=== PATIENT | female | born 1930 | race Caucasian/White ===

== ENCOUNTER → 2016-04-11 | Outpatient (CLI) | payer MEDICARE, OTHER ==
[~2016-04-11] MED LIST: /ACETCOD2T PO; ACET25TA5 PO; APAP500T PO; ASPI81TA85 PO; CALC600T9 PO; FENO48TA2 PO; FENO50CA PO; FISH100035 PO; GABA100C PO; GARL705C PO; GLUC750C4 PO; GLUCTAB6 PO; HYDR-3713 PO; LEVO25TA5 PO; LEVO88TA2 PO; LISI20TA PO; LISIPOW PO; LORA10TA2 PO; MELOPOW PO; METF500T PO; MULTIVITAMIN IV; MULTTAB4 PO; NATU400T PO; NEUR300C PO; ROBA500T PO; SIMV20TA2 PO; TYLE650T25 PO; ULTR37.52 PO; VITA100066 PO; VITACAP8 PO; ZINC50TA22 PO
--- NOTE | 2016-04-12 01:24 | ECWPNPC ---
PATIENT NAME: ARIEL WREN : 1930 GENDER: FEMALE VISIT DATE: 04/11/2016 DISCHARGE DATE: 04/11/16 1118 VISIT LOCKED DATE TIME: PHYSICIAN: YESSICA WANG RESOURCE: YESSICA WANG REASON FOR APPOINTMENT 1. BACK HISTORY OF PRESENT ILLNESS HISTORY OF PRESENT ILLNESS: HERE FOR 3 MOS F/U.HAD LESI ON 12-20-15.THIS WAS HELPFUL WITH MARKED REDUCTION IN PAIN FOR SEVERAL WEEK .RATING PAIN VAS 9/10.USING ULTRACET 37.5/325 BID,[id number] BID AND ROBAXIN 500MG BID.REPORTS FALLING X2 PAST 10 DAYS.HAVING INCREASE IN LBP AND HIP PAIN.HOSPITALIZED IN JANUARY FOR SEPSIS.FINDS CURRENT REGIMEN SOMEWHAT HELPFUL AT REDUCING PAIN AND KEEPING HER COMFORTABLE LATLEY.SHE DOES ALOT OF HEAVY WORK AROUND HOME HER IS DISABLED.DISCUSSED MEDICINE AND TREATMENT OPTIONS. PAIN THE PATIENT DESCRIBES THE PAIN... THE PATIENT DESCRIBES THE PAIN... THE PATIENT DESCRIBES THE PAIN... THE PATIENT DESCRIBES THE PAIN... FALL RISK SCREENING: SCREENING :NO FALLS IN THE PAST YEAR CURRENT MEDICATIONS TAKING ASPIR-81 81 MG TABLET DELAYED RELEASE 1 TABLET ORALLY ONCE A DAY, NOTES: 12/19/15 0900 TAKING FENOFIBRATE 64 TABLET 1TAB ORALLY DAILY, NOTES: 12/19/152329 TAKING FISH OIL 1000 MG CAPSULE 2 CAPSULE ORALLY BID, NOTES: 12/19/152329 TAKING LEVOTHYROXINE SODIUM 75 TABLET 1 TABLET ON AN EMPTY STOMACH IN THE MORNING ORALLY ONCE A DAY, NOTES: 12/20/15 0800 TAKING LISINOPRIL/HCTZ 20/12.5MG TABLET DIRECTED ORAL DAILY, NOTES: 12/19/152329 TAKING MULTIVITAMINS TABLET 1TAB ORALLY DAILY, NOTES: 12/19/15 AM TAKING ZINC 50 MG TABLET 1 TABLET ORALLY ONCE A DAY, NOTES: 12/19/15 1200 TAKING METFORMIN HCL 500 MG TABLET 1 TABLET WITH MEALS ORALLY TWICE A DAY, NOTES: 12/19/152329 TAKING VITAMIN B COMPLEX-C CAPSULE 1 TAB(S) ORALLY DAILY, NOTES: 12/19/15 1200 TAKING ULTRACET 37.5-325 MG TABLET 1 ORALLY BID PRN MDD2, NOTES: 12/20/15 0800 TAKING TRAMADOL-ACETAMINOPHEN 325-37.5 MG TABLET 1 TAB(S) ORALLY BID PRN MDD2 TAKING CYMBALTA 30 MG CAPSULE DELAYED RELEASE PARTICLES 1 CAPSULE ORALLY ONCE A DAY, NOTES: 12/19/15 1800 TAKING MOBIC 7.5 MG TABLET 1 TABLET ORALLY ONCE A DAY, NOTES: 12/19/15 1200 TAKING GABAPENTIN 600 600 MG TABLET 1 ORAL BID, NOTES: 12/20/15 0800 TAKING METHOCARBAMOL 500 MG TABLET 1 TAB(S) ORALLY BID, NOTES: 12/2015 0800 TAKING ULTRACET 37.5-325 MG TABLET 1 ORALLY BID PRN MDD2 TAKING IRON 325 (65 FE) MG TABLET 1 TABLET ORALLY ONCE A DAY NOT-TAKING LORATADINE 10 MG TABLET 1 TABLET ORALLY ONCE A DAY, NOTES: 12/19/15 AM NOT-TAKING VITAMIN E 1000 UNIT CAPSULE 1 CAPSULE ORALLY ONCE A DAY NOT-TAKING GARLIC 1000 MG CAPSULE 1CAP ORALLY DAILY NOT-TAKING GLUCOSAMINE CHONDROITIN COMPLX 760-600MG CAPSULE 2CAPS ORALLY DAILY NOT-TAKING TYLENOL 325 MG TABLET 2TABS ORALLY DAILY MEDICATION LIST REVIEWED AND RECONCILED WITH THE PATIENT PAST MEDICAL HISTORY HTN HYPERLIPIDEMIA HYPOTHYROIDISM DM ARTHRITIS AORTIC STENOSIS ALLERGIES N.K.D.A. SOCIAL HISTORY GENERAL: TOBACCO USE ARE YOU A:NONSMOKER LEARNING BARRIERS / SPECIAL NEEDS ORIENTED TO PLAN OF CARE: PATIENT, PAIN MANAGEMENT PATIENT, ORIENTED TO PLAN OF CARE: PATIENT, PAIN MANAGEMENT PATIENT. NEW PATIENT PAIN DIARY TODAY'S VISITNOTES FROM 0-10, WHAT LEVEL IS YOUR PAIN TODAY?0 PAIN CLINIC PFS, CLERGY, PUBLIC HEALTH REFERRALS PFS REFERRAL NEEDED?NO CLERGY REFERRAL NEEDED?NO PUBLIC HEALTH REFERRAL NEEDED?NO WAS THE PROVIDER NOTIFIED OF ANY PERTINENT INFO?NO PFS REFERRAL NEEDED?NO CLERGY REFERRAL NEEDED?NO PUBLIC HEALTH REFERRAL NEEDED?NO WAS THE PROVIDER NOTIFIED OF ANY PERTINENT INFO?NO REVIEW OF SYSTEMS CONSTITUTIONAL: ANY CHANGE IN YOUR MEDICAL CONDITION? YES PT TREATED INPATIENT X 5 DAYS AT [facility] FOR SEPSIS IN JANUARY.&NBSP;. CHILLS &NBSP;&NBSP; NO&NBSP;. FEVER &NBSP;&NBSP; NO&NBSP;. INFECTION: DO YOU HAVE NEW INFECTIONS? NO . DO YOU HAVE HISTORY OF MRSA? NO . MUSCULOSKELETAL: ANY NEW PATTERNS OF PAIN OR NUMBNESS? NO . GASTROENTEROLOGY: ANY NEW CHANGE IN BOWEL CONTROL? NO . GENITOURINARY: ANY NEW CHANGE IN BLADDER CONTROL? YES PT REPORTS INCREASED URGENCY SINCE BEING HOSPITALIZED IN JANUARY. PT DENIES BURNING OR PAIN. . IS THERE A CHANCE YOU COULD BE ? NO . HEMATOLOGY/LYMPH: DO YOU TAKE ANY BLOOD THINNERS? (FOR EXAMPLE- COUMADIN, PLAVIX, AGGRENOX, PLATEL, PRADAXA, OR XARELTO) NO . WHEN WAS YOUR LAST DOSE? DATE: TIME: . NEUROLOGY: HAVE YOU FALLEN IN THE PAST 6 MONTHS? YES PT REPORTS TWO FALLS IN PAST WEEK, BENDING OVER TO PICK SOMETHING UP, LOST BALANCE AND FELL. BOTH TIMES SHE STRUCK HER HEAD, NO ED VISIT. PT REPORTS INCREASED PAIN IN HER BUTTOCKS, LOW BACK AND DOWN BOTH LEGS SINCE FALL. USING WALKER. . ANY NEW EXTREMITY NUMBNESS OR WEAKNESS? NO . CARDIOLOGY: DO YOU HAVE A PACEMAKER OR DEFIBRILLATOR? NO . RESPIRATORY: HAVE YOU BEEN SICK IN THE PAST WEEK? NO . FEVER NO . FLU LIKE SYMPTOMS? NO . COUGH NO . INTEGUMENTARY: DO YOU HAVE ANY RASHES OR OPEN SORES? NO . ALLERGIC/IMMUNO: ARE YOU ALLERGIC TO SHELLFISH OR IV DYE? NO . ANY NEW ALLERGIES? NO . PSYCHIATRIC: DO YOU HAVE THOUGHTS OF HURTING YOURSELF OR SOMEONE ELSE? NO . ARE YOU ABUSED, NEGLECTED, OR IN AN UNSAFE ENVIRONMENT? NO . ENDOCRINOLOGY: ARE YOU DIABETIC? YES . OTHER: DO YOU NEED ANY PRESCRIPTIONS? NO . IF YES, PLEASE LIST: ____ . ANY NEW PROBLEMS WITH YOUR MEDICATIONS? NO . WHEN DID YOU LAST EAT? ____ . WHEN DID YOU LAST DRINK? ____ . WHAT DID YOU LAST DRINK? ____ . NAME OF PERSON DRIVING YOU HOME? ____ . DO YOU HAVE ANY OTHER QUESTIONS OR CONCERNS NO . REVIEWED BY: PROVIDER: YESSICA CALL . VITAL SIGNS WT 164.4 LBS, HT 5'6", BMI 26.53 INDEX, BP 152/80 MM HG, HR 74 /MIN, RR 16 /MIN, TEMP 97.6 F, OXYGEN SAT % 93%, SAFE IN ENV? (Y/N) YES, NA INITIALS SC 10:33, REVIEWED BY: LUIS. EXAMINATION GENERAL EXAMINATION: LUNGS:LUNG SOUNDS ARE CLEAR. HEART:HEART RATE REGULAR. MUSCULOSKELETAL:*, MUSCLE STRENGTH TESTING 3/5 BILATERAL, PALPATION: POSITIVE FOR PAIN OVER L/S SPINE. POSITIVE FOR PAIN OVER L/S PARSPINALS. ASSESSMENTS CHRONIC BILATERAL LOW BACK PAIN WITH BILATERAL SCIATICA - M54.42 (PRIMARY) TREATMENT CHRONIC BILATERAL LOW BACK PAIN WITH BILATERAL SCIATICA REFILL TRAMADOL-ACETAMINOPHEN TABLET, 325-37.5 MG, 1 TAB(S), ORALLY, Q8H PRN MDD3, 30 DAY(S), 90, REFILLS 2 CONTINUE CYMBALTA CAPSULE DELAYED RELEASE PARTICLES, 30 MG, 1 CAPSULE, ORALLY, ONCE A DAY, NOTES: 12/19/15 1800 CONTINUE MOBIC TABLET, 7.5 MG, 1 TABLET, ORALLY, ONCE A DAY, NOTES: 12/19/15 1200 INCREASE METHOCARBAMOL TABLET, 500 MG, 1 TAB(S), ORALLY, Q8H PRN MDD3, 30 DAY(S), 90, REFILLS 2, NOTES: 12/2015 0800 STOP GABAPENTIN 600 TABLET, 600 MG, 1, ORAL, BID, 30 DAY(S), 60, NOTES: 12/20/15 0800 START GABAPENTIN CAPSULE, 300 MG, 1 CAPSULE, ORALLY, BID, 30 DAY(S), 60 CAPSULE, REFILLS 5 START ULTRACET TABLET, 37.5-325 MG, 1, ORALLY, Q8H PRN MDD3, 30 DAY(S), 90, REFILLS 1 [facility] MRI SPINE, L.S. WITHOUT [id number] PROCEDURE CODES FA211 ESTABILISHED PATIENT [facility] FACILITY CHARGE G8730 PAIN ASSESS POS TOOL F/U PLAN DOC G8427 DOC MEDS VERIFIED W/PT OR RE FOLLOW UP 4 WEEKS ELECTRONICALLY SIGNED BY JAKUB NASCIMENTO ON 04/11/2016 AT 01:19 PM EST DISCLAIMER : THIS IS A VISIT SUMMARY EXTRACTED FROM THE [email or web address] CHART. IT IS NOT A COPY OF THE [email or web address] PROGRESS NOTE. MTDD
== END ==
LOC: M PAIN 10:20
PROVIDERS: ATTEND Nurse Practitioner Family
DX: Z09 Encounter for follow-up examination after completed treatment for conditions other than malignant neoplasm (principal); G89.29 Other chronic pain; M54.42 Lumbago with sciatica, left side; I10 Essential (primary) hypertension; E78.5 Hyperlipidemia, unspecified; E03.9 Hypothyroidism, unspecified; E11.9 Type 2 diabetes mellitus without complications; M19.90 Unspecified osteoarthritis, unspecified site; I35.0 Nonrheumatic aortic (valve) stenosis; Z79.1 Long term (current) use of non-steroidal anti-inflammatories (NSAID); Z79.82 Long term (current) use of aspirin; Z79.84 Long term (current) use of oral hypoglycemic drugs; Z79.891 Long term (current) use of opiate analgesic; Z79.899 Other long term (current) drug therapy

== ENCOUNTER → 2016-04-15 | Outpatient (CLI) | payer MEDICARE, OTHER ==
--- NOTE | 2016-04-15 14:18 | REP ---
Clinical: Bilateral hip pain. Technique: AP and frog lateral views of the right and left hip. Findings: Symmetric age related osteopenia is appreciated along with mild age-related arthritic degenerative changes. Findings include increased sclerosis to the acetabular roof, joint space narrowing, subtle spurring along the acetabular margin as well as enthesopathy and subtle cortical irregularity involving the inferior pubic rami and bilateral greater trochanters. Impression: Symmetric age-related degenerative changes. Signed by Juan Childress MD 04/15/2016 02:10 P
--- NOTE | 2016-04-15 18:08 | REP ---
MRI LUMBAR SPINE WITHOUT CONTRAST: HISTORY: Radiculopathy. Decreased signal intensity on T2 weighted images is present in the lumbar intervertebral discs. The discs are decreased in height. These findings are consistent with disc degeneration. A diffuse bulge is present at the L1-2 level. The previously noted left paracentral disc extrusion is not seen. There is hypertrophy of the ligamenta flava and posterior articulating facets. These findings produce minimal central canal stenosis. The L1 nerves exit the neural foramina without compression. A diffuse disc bulge is present at the L2-3 level. There is hypertrophy of the ligamenta flava and posterior articulating facets. These findings produce mild central canal stenosis. The L2 nerve exit the neural foramina without compression. A diffuse disc bulge and mild size left paracentral disc extrusion are present at the L3-4 level. There is superior migration of disc material. There is hypertrophy of the ligamenta flava and posterior articulating facets. There are 4 mm of grade 1 spondylolisthesis of L3 on 4. These findings produce severe central canal stenosis. There is compression of the L3 nerves in the neural foramina. A diffuse disc bulge is present at the L4-5 level. There is hypertrophy of the ligamenta flava and posterior articulating facets. These findings produce mild central canal stenosis. There is compression of the L4 nerves in the neural foramina. A diffuse disc bulge and small central disc protrusion are present at the L5-S1 level. The disc protrusion abuts the thecal sac. There is hypertrophy of the posterior articulating facets. There is compression of the L5 nerves in the neural foramina. Fluid is present in the right L5-S1 facet joint. The conus medullaris is normal in appearance terminating at the level of the L1-2 intervertebral disc . Increased signal intensity on T2 weighted images is present in the endplates of the L1-S1 vertebral bodies. This represents degenerative change. There are old compression fractures of the L3 through L5 vertebral bodies with minimal height loss. IMPRESSION: 1. Minimal central stenosis at the L1-2 level secondary to disc bulge and ligamentous and facet hypertrophy. The previously noted disc protrusion is not seen. 2. Mild central canal stenosis at the L2-3 level secondary to disc bulge, ligamentous and facet hypertrophy. 3. Severe central canal stenosis at the L3-4 level secondary to disc bulge disc extrusion, ligamentous and facet hypertrophy and grade 1 spondylolisthesis. There is compression of the L3-nerves in the neural foramina. 4. Mild central canal stenosis at the L4-5 level secondary to disc bulge, ligamentous and facet hypertrophy. There is compression of the L4 nerves in the neural foramina. 5. Diffuse disc bulge and small disc protrusion at the L5-S1 level . The disc protrusion abuts the thecal sac. There is compression of the L5 nerves in the neural foramina. The disc protrusion is a new finding . There is no other significant change. Signed by Akira Whitfield MD 04/16/2016 08:04 A
== END ==
LOC: M RAD 13:23
PROVIDERS: ATTEND Nurse Practitioner Family
DX: M54.16 Radiculopathy, lumbar region (principal)

== ENCOUNTER → 2016-04-23 | Outpatient (CLI) | payer MEDICARE, OTHER ==
--- NOTE | 2016-04-28 23:43 | ECWPNPC ---
PATIENT NAME: ARIEL WREN : 1930 GENDER: FEMALE VISIT DATE: 04/23/2016 DISCHARGE DATE: 04/23/16 1204 VISIT LOCKED DATE TIME: PHYSICIAN: YESSICA WANG RESOURCE: YESSICA WANG REASON FOR APPOINTMENT 1. DISCUSS MRI HISTORY OF PRESENT ILLNESS HISTORY OF PRESENT ILLNESS: HERE FOR F/U AND REVIEW OF MRI L/S SPINE 04-15-16.THIS IS REVIEWED WITH PATIENT.SHOWING MULTI LEVEL SPINAL STENOSIS.HAS SEVERE CENTRAL STENOSIS AT L3/4 SECONDARY TO DISC BULGE,DISC EXTRUSION,LIGAMENTOUS AND FACET HYPERTROPHY.GRADE ONE SPONDYLOLISTHESIS AND COMPRESSION OF L3 NERVES IN NEURAL FORAMEN.AT L4/5 THERE IS COMPRESSION OF L4 NERVES IN NEURAL FORAMEN.THERE IS A NEW FINDING AT L5/S1 OF DISC PROTRUSION WITH COMPRESSION OF L5 NERVES IN NEURAL FORAMEN.PAIN IS LOCATED ACROSS LOW BACK WITH RADIATION DOWN BOTH POSTERIOR LEGS.DESCRIBES PAIN CONSTANT ACHING AND THROBBING.DENIES BOWEL OR BLADDER INCONTINENCE. FALL RISK SCREENING: SCREENING :NO FALLS IN THE PAST YEAR CURRENT MEDICATIONS TAKING ASPIR-81 81 MG TABLET DELAYED RELEASE 1 TABLET ORALLY ONCE A DAY, NOTES: 12/19/15 0900 TAKING FENOFIBRATE 64 TABLET 1TAB ORALLY DAILY, NOTES: 12/19/15 2330 TAKING FISH OIL 1000 MG CAPSULE 2 CAPSULE ORALLY BID TAKING LEVOTHYROXINE SODIUM 75 TABLET 1 TABLET ON AN EMPTY STOMACH IN THE MORNING ORALLY ONCE A DAY TAKING LISINOPRIL/HCTZ 20/12.5MG TABLET 1 TAB ORAL DAILY TAKING MULTIVITAMINS TABLET 1TAB ORALLY DAILY TAKING ZINC 50 MG TABLET 1 TABLET ORALLY ONCE A DAY TAKING METFORMIN HCL 500 MG TABLET 1 TABLET WITH MEALS ORALLY TWICE A DAY TAKING VITAMIN B COMPLEX-C CAPSULE 1 TAB(S) ORALLY DAILY TAKING IRON 325 (65 FE) MG TABLET 1 TABLET ORALLY ONCE A DAY TAKING TRAMADOL-ACETAMINOPHEN 325-37.5 MG TABLET 1 TAB(S) ORALLY Q8H PRN MDD3 TAKING CYMBALTA 30 MG CAPSULE DELAYED RELEASE PARTICLES 1 CAPSULE ORALLY ONCE A DAY, NOTES: 12/19/15 1800 TAKING MOBIC 7.5 MG TABLET 1 TABLET ORALLY ONCE A DAY, NOTES: 12/19/15 1200 TAKING METHOCARBAMOL 500 MG TABLET 1 TAB(S) ORALLY Q8H PRN MDD3, NOTES: 12/2015 0800 TAKING GABAPENTIN 300 MG CAPSULE 1 CAPSULE ORALLY BID TAKING ULTRACET 37.5-325 MG TABLET 1 ORALLY Q8H PRN MDD3 NOT-TAKING LORATADINE 10 MG TABLET 1 TABLET ORALLY ONCE A DAY, NOTES: 12/19/15 AM NOT-TAKING VITAMIN E 1000 UNIT CAPSULE 1 CAPSULE ORALLY ONCE A DAY NOT-TAKING GARLIC 1000 MG CAPSULE 1CAP ORALLY DAILY NOT-TAKING GLUCOSAMINE CHONDROITIN COMPLX 760-600MG CAPSULE 2CAPS ORALLY DAILY NOT-TAKING TYLENOL 325 MG TABLET 2TABS ORALLY DAILY DISCONTINUED ULTRACET 37.5-325 MG TABLET 1 ORALLY BID PRN MDD2 DISCONTINUED ULTRACET 37.5-325 MG TABLET 1 ORALLY BID PRN MDD2 MEDICATION LIST REVIEWED AND RECONCILED WITH THE PATIENT PAST MEDICAL HISTORY HTN HYPERLIPIDEMIA HYPOTHYROIDISM DM ARTHRITIS AORTIC STENOSIS ALLERGIES N.K.D.A. SOCIAL HISTORY GENERAL: TOBACCO USE ARE YOU A:NONSMOKER LEARNING BARRIERS / SPECIAL NEEDS ORIENTED TO PLAN OF CARE: PATIENT, PAIN MANAGEMENT PATIENT, ORIENTED TO PLAN OF CARE: PATIENT, PAIN MANAGEMENT PATIENT. NEW PATIENT PAIN DIARY TODAY'S VISITNOTES FROM 0-10, WHAT LEVEL IS YOUR PAIN TODAY?0 PAIN CLINIC PFS, CLERGY, PUBLIC HEALTH REFERRALS PFS REFERRAL NEEDED?NO CLERGY REFERRAL NEEDED?NO PUBLIC HEALTH REFERRAL NEEDED?NO WAS THE PROVIDER NOTIFIED OF ANY PERTINENT INFO?NO PFS REFERRAL NEEDED?NO CLERGY REFERRAL NEEDED?NO PUBLIC HEALTH REFERRAL NEEDED?NO WAS THE PROVIDER NOTIFIED OF ANY PERTINENT INFO?NO REVIEW OF SYSTEMS CONSTITUTIONAL: ANY CHANGE IN YOUR MEDICAL CONDITION? NO . CHILLS NO . FEVER NO . INFECTION: DO YOU HAVE NEW INFECTIONS? NO . DO YOU HAVE HISTORY OF MRSA? NO . MUSCULOSKELETAL: ANY NEW PATTERNS OF PAIN OR NUMBNESS? NO . GASTROENTEROLOGY: ANY NEW CHANGE IN BOWEL CONTROL? NO . GENITOURINARY: ANY NEW CHANGE IN BLADDER CONTROL? NO . IS THERE A CHANCE YOU COULD BE ? NO . HEMATOLOGY/LYMPH: DO YOU TAKE ANY BLOOD THINNERS? (FOR EXAMPLE- COUMADIN, PLAVIX, AGGRENOX, PLATEL, PRADAXA, OR XARELTO) NO . WHEN WAS YOUR LAST DOSE? DATE: TIME: . NEUROLOGY: HAVE YOU FALLEN IN THE PAST 6 MONTHS? YES, 2 X'S WITHIN THIS MONTH&NBSP;. ANY NEW EXTREMITY NUMBNESS OR WEAKNESS? &NBSP;&NBSP; YES, RIGHT LEG JUST GIVES OUT ON HER&NBSP;. CARDIOLOGY: DO YOU HAVE A PACEMAKER OR DEFIBRILLATOR? NO . RESPIRATORY: HAVE YOU BEEN SICK IN THE PAST WEEK? NO . FEVER NO . FLU LIKE SYMPTOMS? NO . COUGH NO . INTEGUMENTARY: DO YOU HAVE ANY RASHES OR OPEN SORES? NO . ALLERGIC/IMMUNO: ARE YOU ALLERGIC TO SHELLFISH OR IV DYE? NO . ANY NEW ALLERGIES? NO . PSYCHIATRIC: DO YOU HAVE THOUGHTS OF HURTING YOURSELF OR SOMEONE ELSE? NO . ARE YOU ABUSED, NEGLECTED, OR IN AN UNSAFE ENVIRONMENT? NO . ENDOCRINOLOGY: ARE YOU DIABETIC? YES . OTHER: DO YOU NEED ANY PRESCRIPTIONS? NO . IF YES, PLEASE LIST: ____ . ANY NEW PROBLEMS WITH YOUR MEDICATIONS? NO . WHEN DID YOU LAST EAT? ____ . WHEN DID YOU LAST DRINK? ____ . WHAT DID YOU LAST DRINK? ____ . NAME OF PERSON DRIVING YOU HOME? ____ . DO YOU HAVE ANY OTHER QUESTIONS OR CONCERNS YES REVIEW MRI LUMBAR SPINE AND HIP XRAY . REVIEWED BY: PROVIDER: YESSICA CALL . VITAL SIGNS WT 162.6 LBS, HT 5'6", BMI 26.24 INDEX, BP 137/84 MM HG, HR 75 /MIN, RR 16 /MIN, TEMP 97.8 F, OXYGEN SAT % 94%, NA INITIALS SC 11:17, REVIEWED BY: AD. EXAMINATION GENERAL EXAMINATION: LUNGS:LUNG SOUNDS ARE CLEAR. HEART:HEART RATE REGULAR. MUSCULOSKELETAL:*, MUSCLE STRENGTH TESTING 3/5 BILATERAL, PALPATION: POSITIVE FOR PAIN OVER L/S SPINE. POSITIVE FOR PAIN OVER L/S PARSPINALS. MRI L/S [id number]-REVIEWED.BILAT. HIP AP/QPE-[id number]-REVIEWED. 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 FDA CONCERNS AND WARNING WERE REVIEWED INCLUDING THE RISK OF BLEEDING, RISK OF INFECTION, RISK OF INCREASED PAIN OR NEURALGIA, AND RISK OF PARALYSIS. PATIENT'S QUESTIONS WERE ANSWERED AND HE/SHE WISHES TO MOVE FORWARD WITH EPIDURAL INJECTION. [facility] REASON:SEVERE CENTRAL STENOSIS L3/4 LUMBAR RADICULOPATHY DISC EXTRUSION W SUPERIOR MIGRATION L3/4 PROCEDURE CODES FA211 ESTABILISHED PATIENT [facility] CHARGE G8730 PAIN ASSESS POS TOOL F/U PLAN DOC G8427 DOC MEDS VERIFIED W/PT OR RE DISPOSITION & COMMUNICATION FOLLOW UP 2WK POST (REASON: L3/4-L4/5 LESI) ELECTRONICALLY SIGNED BY JAKUB NASCIMENTO ON 04/28/2016 AT 05:36 PM EST DISCLAIMER : THIS IS A VISIT SUMMARY EXTRACTED FROM THE [employer] CHART. IT IS NOT A COPY OF THE [employer] PROGRESS NOTE. PRITI
== END ==
LOC: M PAIN 10:40
PROVIDERS: ATTEND Nurse Practitioner Family
DX: Z09 Encounter for follow-up examination after completed treatment for conditions other than malignant neoplasm (principal); G89.29 Other chronic pain; M54.42 Lumbago with sciatica, left side; M51.26 Other intervertebral disc displacement, lumbar region; M48.06 Spinal stenosis, lumbar region; I10 Essential (primary) hypertension; E78.5 Hyperlipidemia, unspecified; E03.9 Hypothyroidism, unspecified; E11.9 Type 2 diabetes mellitus without complications; M19.90 Unspecified osteoarthritis, unspecified site; Z79.82 Long term (current) use of aspirin; Z79.84 Long term (current) use of oral hypoglycemic drugs; Z79.891 Long term (current) use of opiate analgesic; Z79.1 Long term (current) use of non-steroidal anti-inflammatories (NSAID); Z79.899 Other long term (current) drug therapy; Z86.79 Personal history of other diseases of the circulatory system

== ENCOUNTER → 2016-05-20 | Outpatient (CLI) | payer MEDICARE, OTHER ==
[~2016-05-20] MED LIST changes: +ISOVUE-M 300 61% 15ML VIAL (Q9967) As Ordered ONE; +LIDOCAINE 1% SDV INJ 30 ML VIAL As Ordered ONE; +methylPREDNISolone SUSP 40 MG/ML (DEPO-medrol) VIAL (J1030) As Ordered ONE
--- NOTE | 2016-05-20 13:05 | REP ---
PARTIAL LUMBAR SPINE SERIES: FOUR VIEWS. HISTORY: Lumbar epidural steroid injection for pain. 8 seconds of fluoroscopy time is reported. FINDINGS: A sequence of four fluoroscopically-obtained intraprocedural spot radiographs using last image hold technique document needle position and contrast injection for lumbar epidural injection procedure. Signed by Tyrel Luis MD 05/20/2016 03:01 P
--- NOTE | 2016-05-28 02:35 | ECWPNPC ---
PATIENT NAME: ARIEL WREN : 1930 GENDER: FEMALE VISIT DATE: 05/20/2016 DISCHARGE DATE: 05/20/16 1209 VISIT LOCKED DATE TIME: PHYSICIAN: HEIDI HIGGINBOTHAM RESOURCE: HEIDI HIGGINBOTHAM REASON FOR APPOINTMENT 1. LESI HISTORY OF PRESENT ILLNESS HISTORY OF PRESENT ILLNESS: PAIN THE PATIENT DESCRIBES THE PAIN... FALL RISK SCREENING: SCREENING :NO FALLS IN THE PAST YEAR CURRENT MEDICATIONS TAKING ASPIR-81 81 MG TABLET DELAYED RELEASE 1 TABLET ORALLY ONCE A DAY, NOTES: 05/19/16899 TAKING FENOFIBRATE 64 TABLET 1TAB ORALLY DAILY, NOTES: 05/19/162329 TAKING FISH OIL 1000 MG CAPSULE 2 CAPSULE ORALLY BID, NOTES: 05/19/162299 TAKING LEVOTHYROXINE SODIUM 75 TABLET 1 TABLET ON AN EMPTY STOMACH IN THE MORNING ORALLY ONCE A DAY, NOTES: 05/19/16 06 TAKING LISINOPRIL/HCTZ 20/12.5MG TABLET 1 TAB ORAL DAILY, NOTES: 05/19/16 1400 TAKING MULTIVITAMINS TABLET 1TAB ORALLY DAILY, NOTES: 05/19/16899 TAKING ZINC 50 MG TABLET 1 TABLET ORALLY ONCE A DAY, NOTES: 05/19/16899 TAKING METFORMIN HCL 500 MG TABLET 1 TABLET WITH MEALS ORALLY TWICE A DAY, NOTES: 05/19/16899 TAKING VITAMIN B COMPLEX-C CAPSULE 1 TAB(S) ORALLY DAILY, NOTES: 05/19/16899 TAKING IRON 325 (65 FE) MG TABLET 1 TABLET ORALLY ONCE A DAY, NOTES: 05/19/16899 TAKING ULTRACET 37.5-325 MG TABLET 1 ORALLY Q8H PRN MDD3, NOTES: 05/19/162299 TAKING TRAMADOL-ACETAMINOPHEN 325-37.5 MG TABLET 1 TAB(S) ORALLY Q8H PRN MDD3, NOTES: 05/19/162299 TAKING CYMBALTA 30 MG CAPSULE DELAYED RELEASE PARTICLES 1 CAPSULE ORALLY ONCE A DAY, NOTES: 05/19/16899 TAKING MOBIC 7.5 MG TABLET 1 TABLET ORALLY ONCE A DAY, NOTES: 05/19/16899 TAKING METHOCARBAMOL 500 MG TABLET 1 TAB(S) ORALLY Q8H PRN MDD3, NOTES: 05/19/162299 TAKING GABAPENTIN 300 MG CAPSULE 1 CAPSULE ORALLY BID, NOTES: 3/20/17 2300 NOT-TAKING LORATADINE 10 MG TABLET 1 TABLET ORALLY ONCE A DAY, NOTES: 12/19/15 AM NOT-TAKING VITAMIN E 1000 UNIT CAPSULE 1 CAPSULE ORALLY ONCE A DAY NOT-TAKING GARLIC 1000 MG CAPSULE 1CAP ORALLY DAILY NOT-TAKING GLUCOSAMINE CHONDROITIN COMPLX 760-600MG CAPSULE 2CAPS ORALLY DAILY NOT-TAKING TYLENOL 325 MG TABLET 2TABS ORALLY DAILY MEDICATION LIST REVIEWED AND RECONCILED WITH THE PATIENT PAST MEDICAL HISTORY HTN HYPERLIPIDEMIA HYPOTHYROIDISM DM ARTHRITIS AORTIC STENOSIS ALLERGIES N.K.D.A. SOCIAL HISTORY GENERAL: TOBACCO USE ARE YOU A:NONSMOKER LEARNING BARRIERS / SPECIAL NEEDS ORIENTED TO PLAN OF CARE: PATIENT, PAIN MANAGEMENT PATIENT, ORIENTED TO PLAN OF CARE: PATIENT, PAIN MANAGEMENT PATIENT. NEW PATIENT PAIN DIARY TODAY'S VISITNOTES FROM 0-10, WHAT LEVEL IS YOUR PAIN TODAY?0 PAIN CLINIC PFS, CLERGY, PUBLIC HEALTH REFERRALS PFS REFERRAL NEEDED?NO CLERGY REFERRAL NEEDED?NO PUBLIC HEALTH REFERRAL NEEDED?NO WAS THE PROVIDER NOTIFIED OF ANY PERTINENT INFO?NO PFS REFERRAL NEEDED?NO CLERGY REFERRAL NEEDED?NO PUBLIC HEALTH REFERRAL NEEDED?NO WAS THE PROVIDER NOTIFIED OF ANY PERTINENT INFO?NO REVIEW OF SYSTEMS CONSTITUTIONAL: ANY CHANGE IN YOUR MEDICAL CONDITION? NO . CHILLS NO . FEVER NO . INFECTION: DO YOU HAVE NEW INFECTIONS? NO . DO YOU HAVE HISTORY OF MRSA? NO . MUSCULOSKELETAL: ANY NEW PATTERNS OF PAIN OR NUMBNESS? NO . GASTROENTEROLOGY: ANY NEW CHANGE IN BOWEL CONTROL? NO . GENITOURINARY: ANY NEW CHANGE IN BLADDER CONTROL? NO . IS THERE A CHANCE YOU COULD BE ? NO . HEMATOLOGY/LYMPH: DO YOU TAKE ANY BLOOD THINNERS? (FOR EXAMPLE- COUMADIN, PLAVIX, AGGRENOX, PLATEL, PRADAXA, OR XARELTO) NO . WHEN WAS YOUR LAST DOSE? DATE: TIME: . NEUROLOGY: HAVE YOU FALLEN IN THE PAST 6 MONTHS? NO . ANY NEW EXTREMITY NUMBNESS OR WEAKNESS? NO . CARDIOLOGY: DO YOU HAVE A PACEMAKER OR DEFIBRILLATOR? NO . RESPIRATORY: HAVE YOU BEEN SICK IN THE PAST WEEK? NO . FEVER NO . FLU LIKE SYMPTOMS? NO . COUGH NO . INTEGUMENTARY: DO YOU HAVE ANY RASHES OR OPEN SORES? NO . ALLERGIC/IMMUNO: ARE YOU ALLERGIC TO SHELLFISH OR IV DYE? NO . ANY NEW ALLERGIES? NO . PSYCHIATRIC: DO YOU HAVE THOUGHTS OF HURTING YOURSELF OR SOMEONE ELSE? NO . ARE YOU ABUSED, NEGLECTED, OR IN AN UNSAFE ENVIRONMENT? NO . ENDOCRINOLOGY: ARE YOU DIABETIC? NO . OTHER: DO YOU NEED ANY PRESCRIPTIONS? NO . IF YES, PLEASE LIST: ____ . ANY NEW PROBLEMS WITH YOUR MEDICATIONS? NO . WHEN DID YOU LAST EAT? ____05/19/16 2200 . WHEN DID YOU LAST DRINK? ____05/19/16 2330 . WHAT DID YOU LAST DRINK? ____WATER . NAME OF PERSON DRIVING YOU HOME? _SON KYREE WREN . DO YOU HAVE ANY OTHER QUESTIONS OR CONCERNS NO . REVIEWED BY: PROVIDER: . VITAL SIGNS WT 156.4 LBS, HT 5'6", BMI 25.24 INDEX, BP 170/74 MM HG, HR 69 /MIN, RR 18 /MIN, TEMP 97.0 F, OXYGEN SAT % 97, BLOOD GLUCOSE LEVEL 115 THIS AM PER PT, SAFE IN ENV? (Y/N) YES, NA INITIALS HS, REVIEWED BY: LUIS. ASSESSMENTS INTERVERTEBRAL DISC DISORDERS WITH RADICULOPATHY, LUMBOSACRAL REGION - M51.17 (PRIMARY) PROCEDURES PRE PROCEDURE DIAGNOSIS LUMBOSACRAL DISC DISORDER WITH RADICULOPATHY POST PROCEDURE DIAGNOSIS LUMBOSACRAL DISC DISORDER WITH RADICULOPATHY PROCEDURE LUMBAR EPIDURAL STEROID INJECTION UNDER FLUOROSCOPIC GUIDANCE SURGEON DR. HEIDI HIGGINBOTHAM ENVIRONMENTAL MONITORING TECHNICIAN NONE ANESTHESIA LOCAL PRE PROCEDURE NOTE THE PATIENT HAS A HISTORY OF CHRONIC LOW BACK PAIN. I EVALUATE THE PATIENT AND REVIEWED THE CHART. I WENT OVER THE RISKS, ALTERNATIVES, AND BENEFITS ASSOCIATED WITH THIS PROCEDURE. THE PATIENT WOULD LIKE TO PROCEED AND GIVE CONSENT TO PERFORMED THE PROCEDURE. THE PATIENT DENIES UNEXPLAINABLE WEIGHT LOSS, FEVER, CHILLS, OR NEW CHANGES IN URINARY OR BOWEL CONTROL DESCRIPTION OF PROCEDURE THE PATIENT WAS BROUGHT TO THE PROCEDURE ROOM AND PLACED IN THE PRONE POSITION. THE LUMBOSACRAL AREA WAS CLEANED WITH BETADINE SOLUTION AND DRAPED ASEPTICALLY. THE PROCEDURE WAS DONE UNDER STERILE CONDITIONS. I CHECKED LATERALITY AND THE LEVEL WHERE THE PROCEDURE WAS GOING TO BE PERFORMED WITH THE PATIENT AND THE SUPPORTING STAFF AT THE MOMENT OF THE TIME OUT IN THE PROCEDURE ROOM. UNDER FLUOROSCOPIC GUIDANCE, THE TARGET POINT WAS SELECTED AT THE INTERLAMINAR LEVEL OF L5-S1. LIDOCAINE WAS USED TO NUMB THE SKIN AND THE SUBCUTANEOUS TISSUE BELOW IT. EPIDURAL TUOHY NEEDLE, 17-GAUGE, WAS ADVANCED UNDER FLUOROSCOPIC GUIDANCE AND FOLLOWING PATIENT FEEDBACK UNTIL THE EPIDURAL SPACE WAS REACHED, 7 CM DEEP INTO THE SKIN BY THE LOSS OF RESISTANCE TECHNIQUE. ISOVUE M DYE 30%, 0.25 ML, WAS INJECTED SHOWING ADEQUATE SPREAD OF THE DYE. THEN, A SOLUTION OF 3 ML OF NORMAL SALINE WITH DEPO-MEDROL 60 MG WAS INJECTED SLOWLY FOLLOWING PATIENT FEEDBACK. THERE WAS NO EVIDENCE OF BLOOD, PARESTHESIA OR CEREBROSPINAL FLUID DURING THE PROCEDURE. THE PATIENT WAS SENT TO THE RECOVERY ROOM. THE PATIENT WAS MOVING THE EXTREMITIES AND DOING WELL. THERE WAS NO COMPLICATION DURING THE PROCEDURE. FLUOROSCOPY TIME WAS 8 SECONDS POST PROCEDURE NOTE THE PATIENT WILL BE SEEN IN A FOLLOW UP IN THE NEXT FEW WEEKS. INSTRUCTIONS WERE GIVEN, QUESTIONS WERE ANSWERED, AND THE PATIENT EXPRESSED UNDERSTANDING AND AGREES WITH THE PLAN. I, BLAZE BAER, DOCUMENTED THE ABOVE INFORMATION ACTING A SCRIBE FOR DR. HIGGINBOTHAM. I HAVE REVIEWED THE ABOVE DOCUMENT, WRITTEN BY BLAZE HAMPTON AND I VERIFY THAT IT IS [facility]NO[facility] FLUORO GUIDE SPINE INJECTION (PAIN)[id number] PROCEDURE CODES 85999 LUMBAR/SACRAL W/ IMAGING 6045F RADXPS IN END [id number] PXD DISPOSITION & COMMUNICATION FOLLOW UP 3 WEEKS ELECTRONICALLY SIGNED BY HEIDI HIGGINBOTHAM MD ON 05/26/2016 AT 06:09 PM EDT DISCLAIMER : THIS IS A VISIT SUMMARY EXTRACTED FROM THE [employer] CHART. IT IS NOT A COPY OF THE [employer] PROGRESS NOTE. MTDDario
== END ==
LOC: M PAIN 10:20
PROVIDERS: ATTEND Anesthesiology
DX: M51.17 Intervertebral disc disorders with radiculopathy, lumbosacral region (principal); Z79.82 Long term (current) use of aspirin; Z79.84 Long term (current) use of oral hypoglycemic drugs; Z79.891 Long term (current) use of opiate analgesic; Z79.899 Other long term (current) drug therapy; I10 Essential (primary) hypertension; E78.5 Hyperlipidemia, unspecified; E03.9 Hypothyroidism, unspecified; E11.9 Type 2 diabetes mellitus without complications; M19.90 Unspecified osteoarthritis, unspecified site
CPT/HCPCS: 62323; J1030; Q9967

== ENCOUNTER → 2016-06-03 | Outpatient (CLI) | payer MEDICARE, OTHER ==
[~2016-06-03] MED LIST changes: -ISOVUE-M 300 61% 15ML VIAL (Q9967) As Ordered ONE; -LIDOCAINE 1% SDV INJ 30 ML VIAL As Ordered ONE; -methylPREDNISolone SUSP 40 MG/ML (DEPO-medrol) VIAL (J1030) As Ordered ONE
--- NOTE | 2016-06-11 01:12 | ECWPNPC ---
PATIENT NAME: ARIEL WREN : 1930 GENDER: FEMALE VISIT DATE: 06/03/2016 DISCHARGE DATE: 06/03/16 1458 VISIT LOCKED DATE TIME: PHYSICIAN: YESSICA WANG RESOURCE: YESSICA WANG REASON FOR APPOINTMENT 1. POST PROCEDURE-LE HISTORY OF PRESENT ILLNESS HISTORY OF PRESENT ILLNESS: HERE FOR POST PROCEDURE F/U.HAD L4/5-LESI ON 05-20-16.REPORTS >75% IMPROVEMENT IN PAIN THAT CONTINUES TODAY.REPORTS THAT LEG PAIN HAS RESOLVED.SCHEDULED FOR LUMBAR SURGERY W DR. WILLIS ON June.RATING PAIN VAS 7/10 ACROSS LOW BACK. FALL RISK SCREENING: SCREENING :NO FALLS IN THE PAST YEAR CURRENT MEDICATIONS TAKING ASPIR-81 81 MG TABLET DELAYED RELEASE 1 TABLET ORALLY ONCE A DAY TAKING FENOFIBRATE 64 TABLET 1TAB ORALLY DAILY TAKING FISH OIL 1000 MG CAPSULE 2 CAPSULE ORALLY BID TAKING LEVOTHYROXINE SODIUM 75 TABLET 1 TABLET ON AN EMPTY STOMACH IN THE MORNING ORALLY ONCE A DAY TAKING LISINOPRIL/HCTZ 20/12.5MG TABLET 1 TAB ORAL DAILY TAKING MULTIVITAMINS TABLET 1TAB ORALLY DAILY TAKING ZINC 50 MG TABLET 1 TABLET ORALLY ONCE A DAY TAKING METFORMIN HCL 500 MG TABLET 1 TABLET WITH MEALS ORALLY TWICE A DAY TAKING VITAMIN B COMPLEX-C CAPSULE 1 TAB(S) ORALLY DAILY TAKING IRON 325 (65 FE) MG TABLET 1 TABLET ORALLY ONCE A DAY TAKING ULTRACET 37.5-325 MG TABLET 1 ORALLY Q8H PRN MDD3 TAKING TRAMADOL-ACETAMINOPHEN 325-37.5 MG TABLET 1 TAB(S) ORALLY Q8H PRN MDD3 TAKING CYMBALTA 30 MG CAPSULE DELAYED RELEASE PARTICLES 1 CAPSULE ORALLY ONCE A DAY TAKING MOBIC 7.5 MG TABLET 1 TABLET ORALLY ONCE A DAY TAKING METHOCARBAMOL 500 MG TABLET 1 TAB(S) ORALLY Q8H PRN MDD3 TAKING GABAPENTIN 300 MG CAPSULE 1 CAPSULE ORALLY BID NOT-TAKING LORATADINE 10 MG TABLET 1 TABLET ORALLY ONCE A DAY NOT-TAKING VITAMIN E 1000 UNIT CAPSULE 1 CAPSULE ORALLY ONCE A DAY NOT-TAKING GARLIC 1000 MG CAPSULE 1CAP ORALLY DAILY NOT-TAKING GLUCOSAMINE CHONDROITIN COMPLX 760-600MG CAPSULE 2CAPS ORALLY DAILY NOT-TAKING TYLENOL 325 MG TABLET 2TABS ORALLY DAILY MEDICATION LIST REVIEWED AND RECONCILED WITH THE PATIENT PAST MEDICAL HISTORY HTN HYPERLIPIDEMIA HYPOTHYROIDISM DM ARTHRITIS AORTIC STENOSIS ALLERGIES N.K.D.A. SURGICAL HISTORY HYSTERECTOMY 1985 VITRECTOMY X2 RIGHT EYE 2012 CATARACT SURGERY 2007 INJECTION IN RIGHT EYE FOR MACULAR DEGENERATION 2016-06-03 SOCIAL HISTORY GENERAL: PAIN CLINIC PFS, CLERGY, PUBLIC HEALTH REFERRALS PFS REFERRAL NEEDED?NO CLERGY REFERRAL NEEDED?NO PUBLIC HEALTH REFERRAL NEEDED?NO WAS THE PROVIDER NOTIFIED OF ANY PERTINENT INFO?YES PATIENT: ____. HOSPITALIZATION/MAJOR DIAGNOSTIC PROCEDURE SURGERY RELATED REVIEW OF SYSTEMS CONSTITUTIONAL: ANY CHANGE IN YOUR MEDICAL CONDITION? NO . CHILLS NO . FEVER NO . INFECTION: DO YOU HAVE NEW INFECTIONS? NO . DO YOU HAVE HISTORY OF MRSA? NO . MUSCULOSKELETAL: ANY NEW PATTERNS OF PAIN OR NUMBNESS? NO . GASTROENTEROLOGY: ANY NEW CHANGE IN BOWEL CONTROL? NO . GENITOURINARY: ANY NEW CHANGE IN BLADDER CONTROL? NO . IS THERE A CHANCE YOU COULD BE ? NO . HEMATOLOGY/LYMPH: DO YOU TAKE ANY BLOOD THINNERS? (FOR EXAMPLE- COUMADIN, PLAVIX, AGGRENOX, PLATEL, PRADAXA, OR XARELTO) NO . WHEN WAS YOUR LAST DOSE? DATE: TIME: . NEUROLOGY: HAVE YOU FALLEN IN THE PAST 6 MONTHS? YES, NOT RECENTLY, FELL AT HOME, NO INJURY, NO REPORT TO ED . ANY NEW EXTREMITY NUMBNESS OR WEAKNESS? NO . CARDIOLOGY: DO YOU HAVE A PACEMAKER OR DEFIBRILLATOR? NO . RESPIRATORY: HAVE YOU BEEN SICK IN THE PAST WEEK? NO . FEVER NO . FLU LIKE SYMPTOMS? NO . COUGH NO . INTEGUMENTARY: DO YOU HAVE ANY RASHES OR OPEN SORES? NO . ALLERGIC/IMMUNO: ARE YOU ALLERGIC TO SHELLFISH OR IV DYE? NO . ANY NEW ALLERGIES? NO . PSYCHIATRIC: DO YOU HAVE THOUGHTS OF HURTING YOURSELF OR SOMEONE ELSE? NO . ARE YOU ABUSED, NEGLECTED, OR IN AN UNSAFE ENVIRONMENT? NO . ENDOCRINOLOGY: ARE YOU DIABETIC? YES, FSBS 127 . OTHER: DO YOU NEED ANY PRESCRIPTIONS? NO . IF YES, PLEASE LIST: ____ . ANY NEW PROBLEMS WITH YOUR MEDICATIONS? NO . WHEN DID YOU LAST EAT? ____ . WHEN DID YOU LAST DRINK? ____ . WHAT DID YOU LAST DRINK? ____ . NAME OF PERSON DRIVING YOU HOME? ____ . DO YOU HAVE ANY OTHER QUESTIONS OR CONCERNS PT HAVING LUMBAR LAMINECTOMY ON June AT [facility] . REVIEWED BY: PROVIDER: YESSICA CALL . VITAL SIGNS WT 160.8 LBS, HT 66", BMI 25.95 INDEX, BP 138/68 MM HG, HR 75 /MIN, RR 16 /MIN, TEMP 97.9 F, OXYGEN SAT % 97%, BLOOD GLUCOSE LEVEL 127, SAFE IN ENV? (Y/N) Y, NA INITIALS TL 1427, REVIEWED BY: RYAN. EXAMINATION GENERAL EXAMINATION: LUNGS:LUNG SOUNDS ARE CLEAR. HEART:HEART RATE REGULAR. MUSCULOSKELETAL:*, MUSCLE STRENGTH TESTING 3/5 BILATERAL, PALPATION: POSITIVE FOR PAIN OVER L/S SPINE. POSITIVE FOR PAIN OVER L/S PARSPINALS. MRI L/S [id number]-REVIEWED.BILAT. HIP AP/ZXX-[id number]-REVIEWED. 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 IT IS NOT A COPY OF THE [employer] PROGRESS NOTE. MTDD
== END ==
LOC: M PAIN 14:40
PROVIDERS: ATTEND Nurse Practitioner Family
DX: M54.42 Lumbago with sciatica, left side (principal); M51.26 Other intervertebral disc displacement, lumbar region; M48.06 Spinal stenosis, lumbar region; G89.29 Other chronic pain; Z79.891 Long term (current) use of opiate analgesic; Z79.84 Long term (current) use of oral hypoglycemic drugs; Z79.82 Long term (current) use of aspirin; Z79.899 Other long term (current) drug therapy; I10 Essential (primary) hypertension; E78.5 Hyperlipidemia, unspecified; E03.9 Hypothyroidism, unspecified; E11.9 Type 2 diabetes mellitus without complications

== ENCOUNTER 2018-02-13 11:19 | Inpatient (IN) | payer MEDICARE, OTHER ==
[~2018-02-13] VITALS: Ht 167.6 cm; Wt 72.3 kg
[~2018-02-13 11:19] MED LIST changes: +ACET25TA12 PO; -ACET25TA5 PO; -APAP500T PO; +APAP500T10 PO; -ULTR37.52 PO; +ULTR37.54 PO
[2018-02-13] MEDS: NS 1,000 ML IV SCH (12:00)
[2018-02-13 12:08] LABS: BASO % 0.2 % (0.0-1.0); HEMATOCRIT 35.8 % (36.0-47.0); HEMOGLOBIN 11.9 g/dl (12.0-15.5); LYMPH # 0.8 10^3/uL (1.5-4.5); MEAN CORPUSCULAR HEMOGLOBIN 29.8 pg (27.0-33.0); MEAN CORPUSCULAR HGB CONC 33.2 g/dl (32.0-36.5); MEAN CORPUSCULAR VOLUME 89.7 fl (80.0-96.0); MONO # 1.2 10^3/uL (0.0-0.8); MONO % 8.9 % (0.0-5.0); NEUTROPHILS # 11.2 10^3/uL (1.8-7.7); NEUTROPHILS % 84.1 % (36.0-66.0); PLATELET COUNT, AUTOMATED 176 10^3/uL (150-450); RED BLOOD COUNT 3.99 10^6/uL (4.00-5.40); WHITE BLOOD COUNT 13.3 10^3/uL (4.0-10.0)
[2018-02-13 12:14] LABS: ALBUMIN 3.1 GM/DL (3.2-5.2); BILIRUBIN,TOTAL 0.6 MG/DL (0.2-1.0); CALCIUM LEVEL 9.2 MG/DL (8.8-10.2); CREATININE FOR GFR 1.15 MG/DL (0.55-1.30); GLOMERULAR FILTRATION RATE 47.4 (>32); POTASSIUM SERUM 3.1 MEQ/L (3.5-5.1); TOTAL PROTEIN 6.8 GM/DL (6.4-8.2)
[2018-02-13 12:32] LABS: CPK CREATINE PHOSPHOKINASE 1884 U/L (26-192); MB/CK RELATIVE INDEX 0.28 (< OR =4); TROPONIN I < 0.02 NG/ML (< 0.10)
[2018-02-13] MEDS ORDERED: POTASSIUM CHLORIDE 10 MEQ SR TABLET PO ONE (13:15)
--- NOTE | 2018-02-13 13:35 | REP ---
TWO-VIEW CHEST: REASON FOR EXAM: Trauma. COMPARISON: 02/12/2016 FINDINGS: The technique utilized in obtaining the radiograph has magnified the cardiac silhouette and accentuated the interstitial markings. The superior mediastinal structures are midline. The cardiac silhouette is unremarkable in size, shape, and position. The diaphragmatic surfaces of the lungs are regular, and the costophrenic angles are clear. The pulmonary ramirez are clear. The imaged osseous structures are intact. IMPRESSION: There is no acute cardiopulmonary disease. Electronically Signed by Bebo Smith DO 02/13/2018 01:42 P
[2018-02-13] MEDS ORDERED: TYLE325T5 PO (13:39)
[2018-02-13] MEDS ORDERED: VITMTA PO (13:39)
[2018-02-13] MEDS ORDERED: ASPI1TAB15 PO (13:39)
[2018-02-13] MEDS ORDERED: SYNT75TA PO (13:39)
[2018-02-13] MEDS ORDERED: FISH1000 PO (13:39)
[2018-02-13] MEDS ORDERED: METF-839 PO (13:39)
[2018-02-13] MEDS ORDERED: VITATAB11 PO (13:39)
[2018-02-13] MEDS ORDERED: CEFD300CAP PO (13:39)
[2018-02-13] MEDS ORDERED: cefTRIAXone SOD 1 GM in D5W MINI-BAG PLUS 50 ML IV ONE (14:00)
[2018-02-13] MEDS ORDERED: ONDANSETRON 4MG/2ML VIAL (J2405) IV PRN (14:15)
[2018-02-13] MEDS ORDERED: ACETAMINOPHEN TAB 650MG DOSE (2X325MG) PO PRN (14:15)
[2018-02-13] MEDS ORDERED: GLUCAGON FOR INJ 1 MG VIAL (J1610) SC PRN (14:15)
[2018-02-13] MEDS ORDERED: GLUCOSE 4 GM CHEW TABLET PO PRN (14:15)
[2018-02-13] MEDS ORDERED: DEXTROSE 50% 50 ML SYRINGE IV PRN (14:15)
[2018-02-13 14:21] LABS: MAGNESIUM LEVEL 1.6 MG/DL (1.8-2.4)
--- NOTE | 2018-02-13 14:52 | HPEPDOC ---
[facility] Medical History & Physical Date of Admission Feb 13, 2018 History and Physical PRIMARY CARE PROVIDER:Dr. Orozco ATTENDING: Dr. Ale Dorado CHIEF COMPLAINT: Generalized weakness and fevers HISTORY OF PRESENT ILLNESS: This is a 87-year-old female past medical history hypertension, hypothyroidism, diabetes mellitus, aortic stenosis, hyperlipidemia, voiding issues follows up with Dr. Chacon who presents with generalized weakness and fever. Patient had presented to urgent care yesterday with fever MAXIMUM TEMPERATURE 100.8, chills, was noted to have a urinary tract infection, given cefdinir, which she did not start yet. This morning, the patient woke up with generalized weakness and unable to get out of bed for which she slid down out of bed however did not have a mechanical fall. No syncope. Upon presenting to ED, patient was noted to be dehydrated, given IV fluids, however is still feeling ill. Patient notes that she's had prior history of UTIs with resulting sepsis. She currently denies any chest pain, shortness of breath, palpitations, nausea, vomiting, abdominal pain. She does have intermittent dysuria, however does not have any urinary frequency or urgency. PAST MEDICAL HISTORY: As per HPI PAST SURGICAL HISTORY: Hysterectomy, cataract surgery, macular degeneration injections SOCIAL HISTORY: History of tobacco abuse however quit in 1984, denies alcohol use. FAMILY HISTORY: ALLERGIES: Please see below. REVIEW OF SYSTEMS: HEENT: Denies sore throat/headache CARDIOVASCULAR: Denies chest pain/palpitations RESPIRATORY: Denies shortness of breath/cough GASTROINTESTINAL: denies nausea/vomiting GENITOURINARY: Denies dysuria/urinary urgency. MUSCULOSKELETAL: Denies myalgias/arthralgias NEUROLOGICAL: Denies any focal weakness HOME MEDICATIONS: Please see below. PHYSICAL EXAMINATION: Vitals: (see below) General: No acute distress, laying comfortably in bed. HEENT: Moist mucous membranes. Neck: No JVD or lymphadenopathy Cardiac: RRR, 3-6 systolic ejection murmur loudest at the second right intercostal space. Pulm: Clear to auscultation b/l. No wheezing, rhonchi Abd: NT/ND + BS Ext: No edema or cyanosis Neuro: Strength 5/5 BUE and BLE. LABORATORY DATA: See below. IMAGING: Chest x-ray with no acute pulmonary disease. ASSESSMENT/PLAN: 1. Sepsis secondary to a urinary tract infection. History of Pseudomonas. He started on Rocephin. Urine/blood cultures pending. IV fluids. We'll also obtain records from urgent care in [facility]. 2. Orthostatic hypotension started on IV fluids. Likely secondary to the above. 3. Rhabdomyolysis secondary to the above. Started on IV fluids. Renal function preserved. 4. Generalized weakness secondary to sepsis. PT/OT ordered. No focal weakness or deficits. 5. Hypokalemia/hypomagnesemia replaced. 6. History of aortic stenosis. No chest pain/CHF/syncope in the past. States she was evaluated by Dr. Davis's office and had refused evaluation for valve repair. 7. Hypothyroidism on Synthroid 8. History of hypertension hold home meds for now. We'll need to reassess in a.m. 9. Hyperlipidemia continue meds DVT prophylaxis heparin subcutaneous Patient will be followed by Dr. Ale Dorado starting 02/14/18 at 7 AM. Vital Signs Vital Signs Date Time Temp Pulse Resp B/P (MAP) Pulse Ox O2 Delivery O2 Flow Rate FiO2 02/13/18 12:10 74 104/58 (73) 76 101/59 (73) 80 96/62 (73) 02/13/18 11:31 97.4 18 77 Room Air Laboratory Data Labs 24H Laboratory Tests 2 02/13/18 11:34: Immature Granulocyte % (Auto) 0.8, White Blood Count 13.3H, Red Blood Count 3.99L, Hemoglobin 11.9L, Hematocrit 35.8L, Mean Corpuscular Volume 89.7, Mean Corpuscular Hemoglobin 29.8, Mean Corpuscular Hemoglobin Concent 33.2, Red Cell Distribution Width 13.3, Platelet Count 176, Neutrophils (%) (Auto) 84.1H, Lymphocytes (%) (Auto) 6.0L, Monocytes (%) (Auto) 8.9H, Eosinophils (%) (Auto) 0.0, Basophils (%) (Auto) 0.2, Neutrophils # (Auto) 11.2H, Lymphocytes # (Auto) 0.8L, Monocytes # (Auto) 1.2H, Eosinophils # (Auto) 0.0, Basophils # (Auto) 0.0, Nucleated Red Blood Cells % (auto) 0.0, Anion Gap 11, Glomerular Filtration Rate 47.4, Lactic Acid Level 1.6, Blood Urea Nitrogen 16, Creatinine 1.15, Sodium Level 137, Potassium Level 3.1L, Chloride Level 101, Carbon Dioxide Level 25, Calcium Level 9.2, Aspartate Amino Transf (AST/SGOT) 46H, Alanine Aminotransferase (ALT/SGPT) 24, Alkaline Phosphatase 27L, Total Bilirubin 0.6, Total Protein 6.8, Albumin 3.1L, Magnesium Level 1.6L, Total Creatine Kinase 1884H, Creatine Kinase MB 5.0H, Creatine Kinase MB Relative Index 0.28, Troponin I < 0.02, Albumin/Globulin Ratio 0.84L 02/13/18 12:05: Bedside Glucose (Misc Panel) 144H 02/13/18 13:38: Urine Color YELLOW, Urine Appearance CLOUDYH, Urine pH 5.0, Urine Specific [place] 1.012, Urine Protein 1+H, Urine Glucose (UA) NEGATIVE, Urine Ketones NEGATIVE, Urine Blood 2+H, Urine Nitrite NEGATIVE, Urine Bilirubin NEGATIVE, Urine Urobilinogen 0.2, Urine Leukocyte Esterase 3+H, Urine WBC (Auto) TNTCH, Urine RBC (Auto) 47H, Urine Hyaline Casts (Auto) 0, Urine Bacteria (Auto) 2+H, Urine Squamous Epithelial Cells 2, Urine Transitional Epithelial Cells 3, Urine Amorphous Sediment SMALLH, Urine Sperm (Auto) CBC/BMP Laboratory Tests 02/13/18 11:34 Red Blood Count 3.99 L, Mean Corpuscular Volume 89.7, Mean Corpuscular Hemoglobin 29.8, Mean Corpuscular Hemoglobin Concent 33.2, Red Cell Distribution Width 13.3, Neutrophils (%) (Auto) 84.1 H, Lymphocytes (%) (Auto) 6.0 L, Mon ocytes (%) (Auto) 8.9 H, Eosinophils (%) (Auto) 0.0, Basophils (%) (Auto) 0.2, Neutrophils # (Auto) 11.2 H, Lymphocytes # (Auto) 0.8 L, Monocytes # (Auto) 1.2 H, Eosinophils # (Auto) 0.0, Basophils # (Auto) 0.0, Calcium Level 9.2, Aspartate Amino Transf (AST/SGOT) 46 H, Alanine Aminotransferase (ALT/SGPT) 24, Alkaline Phosphatase 27 L, Total Bilirubin 0.6, Total Protein 6.8, Albumin 3.1 L Microbiology Microbiology 02/13/18 Urine Culture, Received Pending Home Medications Scheduled (Lisinopril/Hydrochlorothi 20-12.5 mg) 1 Tab Tab, 1 TAB PO DAILY (Fenofibrate) 50 Mg Cap, 50 MG PO DAILY Aspirin (Aspirin) 81 Mg Tab, 81 MG PO DAILY B1/B2/B3/B5/B6 (Vitamin B Complex) 1 Tab Tab, 1 TAB PO DAILY Cefdinir (Cefdinir) 300 Mg Cap, 300 MG PO BID RX WAS WRITTEN 02/12/18, PICKED UP, PT HAS NOT STARTED THE MEDICATION Fish Oil (Fish Oil) 1,000 Mg Cap, 2,000 MG PO BID Levothyroxine Sodium (Synthroid) 75 Mcg Tab, 75 MCG PO DAILY Metformin Hydrochloride (Metformin Hydrochloride) 500 Mg Tab, 1,000 MG PO BID Multivitamins *[facility] STOCKED* (Thera M Plus *[facility] STOCKED*) 1 Tab Tab, 1 TAB PO DAILY Scheduled PRN (Acetaminophen Pm Extra St 500-25 mg) 1 Tab Tab, 1 TAB PO QHS PRN for SLEEP Acetaminophen (Tylenol) 325 Mg Tab, 650 MG PO Q4H PRN for PAIN Allergies Coded Allergies: No Known Allergies (Unverified , 04/14/13) DESI DELONG MD Feb 13, 2018 14:52
[2018-02-13] MEDS ORDERED: MAG SULF 1GM/100ML (MAG RUN) 1 GM in APPROPRIATE DILUENT 1 EA IV ONE (15:00)
[2018-02-13] MEDS: LEVOTHYROXINE 75MCG TABLET (0.075MG) PO SCH (15:03)
[2018-02-13] MEDS: ASPIRIN 81 MG ENTERIC TAB PO SCH (15:04)
[2018-02-13 16:00] VITALS: BP 108/81
[2018-02-13] MEDS ORDERED: PIPERACILLIN/TAZOBACTAM SOD 3.375 GM in D5W MINI-BAG PLUS 50 ML IV SCH (17:30)
[2018-02-13] MEDS: HumaLOG INSULIN (NovoLOG) PER UNIT SC SCH ×2 (17:30→20:46)
[2018-02-13] MEDS ORDERED: ACETAMINOPHEN TAB 650MG DOSE (2X325MG) PO ONE (18:15)
[2018-02-13] MEDS ORDERED: ZOSYN 3.375 GM VIAL (J2543) As Ordered ONE (18:31)
[2018-02-13 18:46] LABS: MB/CK RELATIVE INDEX 0.2 (< OR =4); TROPONIN I 0.04 NG/ML (< 0.10)
[2018-02-13] MEDS ORDERED: PIPERACILLIN/TAZOBACTAM SOD 2.25 GM in D5W MINI-BAG PLUS 50 ML IV SCH ×2 (19:00→23:30)
[2018-02-13 19:53] VITALS: BP 111/58
[2018-02-13] MEDS: HEPARIN SOD (PORCINE) 5000 UNITS/ML VIAL SQ SCH (20:58)
[2018-02-13] MEDS: PIPERACILLIN/TAZOBACTAM SOD 2.25 GM in D5W MINI-BAG PLUS 50 ML IV SCH (20:58)
[2018-02-14] VITALS: BP 115/61
[2018-02-14] MEDS: PIPERACILLIN/TAZOBACTAM SOD 2.25 GM in D5W MINI-BAG PLUS 50 ML IV SCH ×4 (02:11→20:49)
[2018-02-14] MEDS: NS 1,000 ML IV SCH ×3 (02:11→23:48)
[2018-02-14 04:00] VITALS: BP 153/76
[2018-02-14 04:38] LABS: HEMATOCRIT 33.2 % (36.0-47.0); MEAN CORPUSCULAR HEMOGLOBIN 29.6 pg (27.0-33.0); MEAN CORPUSCULAR HGB CONC 33.1 g/dl (32.0-36.5); MEAN CORPUSCULAR VOLUME 89.5 fl (80.0-96.0); PLATELET COUNT, AUTOMATED 164 10^3/uL (150-450); RED BLOOD COUNT 3.71 10^6/uL (4.00-5.40); WHITE BLOOD COUNT 9.8 10^3/uL (4.0-10.0)
[2018-02-14 05:01] LABS: CALCIUM LEVEL 8.7 MG/DL (8.8-10.2); CREATININE FOR GFR 0.96 MG/DL (0.55-1.30); GLOMERULAR FILTRATION RATE 58.4 (>32); MAGNESIUM LEVEL 1.9 MG/DL (1.8-2.4); POTASSIUM SERUM 3.6 MEQ/L (3.5-5.1)
[2018-02-14 05:21] LABS: MB/CK RELATIVE INDEX 0.28 (< OR =4); TROPONIN I 0.02 NG/ML (< 0.10)
[2018-02-14] MEDS: LEVOTHYROXINE 75MCG TABLET (0.075MG) PO SCH (05:28)
[2018-02-14] MEDS: HEPARIN SOD (PORCINE) 5000 UNITS/ML VIAL SQ SCH ×3 (05:28→20:49)
[2018-02-14] MEDS: HumaLOG INSULIN (NovoLOG) PER UNIT SC SCH ×5 (07:30→20:36)
[2018-02-14 08:00] VITALS: BP 141/87
[2018-02-14] MEDS: ASPIRIN 81 MG ENTERIC TAB PO SCH (08:24)
--- NOTE | 2018-02-14 10:05 | IPNPDOC ---
Date Seen The patient was seen on 02/14/18. Progress Note SUBJECTIVE:c/o dysuria despite lowe catheter, but declined pyridium for pain control. "If I go, I go. I don't want to suffer." Pt says she has severe aortic stenosis, mitral valve issues and has decided not to pursue surgery at "my age." "I just want to join my if it comes to that." no fever, but admits to chills when she gets febrile. no cough, sob, but admits to chronic pain in the back. PHYSICAL EXAMINATION: Vitals: (see below) General: No acute distress, laying comfortably in bed. HEENT: Moist mucous membranes. Neck: No JVD or lymphadenopathy Cardiac: RRR, 3-6 systolic ejection murmur loudest at the second right intercostal space. Pulm: Clear to auscultation b/l. No wheezing, rhonchi Abd: NT/ND + BS Ext: No edema or cyanosis Neuro: Strength 5/5 BUE and BLE. LABORATORY DATA: See below. IMAGING: Chest x-ray with no acute pulmonary disease. ASSESSMENT/PLAN: This is a 87-year-old female past medical history hypertension, hypothyroidism, diabetes mellitus, aortic stenosis, hyperlipidemia, voiding issues follows up with Dr. Chacon who presents with generalized weakness and fever.Patient had presented to urgent care yesterday with fever MAXIMUM TEMPERATURE 100.8, chills, was noted to have a urinary tract infection, given cefdinir, which she did not start yet.This morning, the patient woke up with generalized weakness and unable to get out of bed for which she slid down out of bed however did not have a mechanical fall. No syncope.Upon presenting to ED, vannessa sotelo was noted to be dehydrated, given IV fluids, however is still feeling ill.Patient notes that she's had prior history of UTIs with resulting sepsis. She currently denies any chest pain, shortness of breath, palpitations, nausea, vomiting, abdominal pain. She does have intermittent dysuria, however does not have any urinary frequency or urgency. 1. Sepsis secondary to a urinary tract infection. History of Pseudomonas. He started on Rocephin. Urine/blood cultures pending. IV fluids. We'll also obtain records from urgent care in [facility]. 2. Orthostatic hypotension started on IV fluids. Likely secondary to the above. 3. Rhabdomyolysis secondary to the above. Started on IV fluids. Renal function preserved. 4. Generalized weakness secondary to sepsis. PT/OT ordered. No focal weakness or deficits. 5. Hypokalemia/hypomagnesemia replaced. 6. History of aortic stenosis. No chest pain/CHF/syncope in the past. States she was evaluated by Dr. Davis's office and had refused evaluation for valve repair. 7. Hypothyroidism on Synthroid 8. History of hypertension hold home meds for now. We'll need to reassess in a.m. 9. Hyperlipidemia continue meds DVT prophylaxis heparin subcutaneous VS, I&O, 24H, Fishbone Vital Signs/I&O Vital Signs Date Time Temp Pulse Resp B/P (MAP) Pulse Ox O2 Delivery O2 Flow Rate FiO2 02/14/18 04:00 97.6 66 18 153/76 (101) 93 Room Air I&O- Last 24 Hours up to 6 AM 02/14/18 06:00 Intake Total 950 ml Output Total 440 ml Balance 510 ml Laboratory Data 24H LABS Laboratory Tests 2 02/13/18 11:34: Immature Granulocyte % (Auto) 0.8, White Blood Count 13.3H, Red Blood Count 3.99L, Hemoglobin 11.9L, Hematocrit 35.8L, Mean Corpuscular Volume 89.7, Mean Corpuscular Hemoglobin 29.8, Mean Corpuscular Hemoglobin Concent 33.2, Red Cell Distribution Width 13.3, Platelet Count 176, Neutrophils (%) (Auto) 84.1H, Lymphocytes (%) (Auto) 6.0L, Monocytes (%) (Auto) 8.9H, Eosinophils (%) (Auto) 0.0, Basophils (%) (Auto) 0.2, Neutrophils # (Auto) 11.2H, Lymphocytes # (Auto) 0.8L, Monocytes # (Auto) 1.2H, Eosinophils # (Auto) 0.0, Basophils # (Auto) 0.0, Nucleated Red Blood Cells % (auto) 0.0, Anion Gap 11, Glomerular Filtration Rate 47.4, Lactic Acid Level 1.6, Blood Urea Nitrogen 16, Creatinine 1.15, Sodium Level 137, Potassium Level 3.1L, Chloride Level 101, Carbon Dioxide Level 25, Calcium Level 9.2, Aspartate Amino Transf (AST/SGOT) 46H, Alanine Aminotransferase (ALT/SGPT) 24, Alkaline Phosphatase 27L, Total Bilirubin 0.6, Total Protein 6.8, Albumin 3.1L, Magnesium Level 1.6L, Total Creatine Kinase 1884H, Creatine Kinase MB 5.0H, Creatine Kinase MB Relative Index 0.28, Troponin I < 0.02, Albumin/Globulin Ratio 0.84L 02/13/18 12:05: Bedside Glucose (Misc Panel) 144H 02/13/18 13:38: Urine Color YELLOW, Urine Appearance CLOUDYH, Urine pH 5.0, Urine Specific [place] 1.012, Urine Protein 1+H, Urine Glucose (UA) NEGATIVE, Urine Ketones NEGATIVE, Urine Blood 2+H, Urine Nitrite NEGATIVE, Urine Bilirubin NEGATIVE, Urine Urobilinogen 0.2, Urine Leukocyte Esterase 3+H, Urine WBC (Auto) TNTCH, Urine RBC (Auto) 47H, Urine Hyaline Casts (Auto) 0, Urine Bacteria (Auto) 2+H, Urine Squamous Epithelial Cells 2, Urine Transitional Epithelial Cells 3, Urine Amorphous Sediment SMALLH, Urine Sperm (Auto) 02/13/18 16:48: Bedside Glucose (Misc Panel) 78L 02/13/18 17:44: Total Creatine Kinase 3648#H, Creatine Kinase MB 7.0H, Creatine Kinase MB Relative Index 0.20, Troponin I 0.04# 02/13/18 20:07: Bedside Glucose (Misc Panel) 169H 02/14/18 04:07: Total Creatine Kinase 2187H, Creatine Kinase MB 6.0H, Creatine Kinase MB Relative Index 0.28, Troponin I 0.02#, Nucleated Red Blood Cells % (auto) 0.0, Anion Gap 8, Glomerular Filtration Rate 58.4, Blood Urea Nitrogen 16, Creatinine 0.96, Sodium Level 140, Potassium Level 3.6, Chloride Level 105, Carbon Dioxide Level 27, Calcium Level 8.7L, Magnesium Level 1.9 CBC/BMP Laboratory Tests 02/13/18 11:34 Red Blood Count 3.99 L, Mean Corpuscular Volume 89.7, Mean Corpuscular Hemoglobin 29.8, Mean Corpuscular Hemoglobin Concent 33.2, Red Cell Distribution Width 13.3, Neutrophils (%) (Auto) 84.1 H, Lymphocytes (%) (Auto) 6.0 L, Monocytes (%) (Auto) 8.9 H, Eosinophils (%) (Auto) 0.0, Basophils (%) (Auto) 0.2, Neutrophils # (Auto) 11.2 H, Lymphocytes # (Auto) 0.8 L, Monocytes # (Auto) 1.2 H, Eosinophils # (Auto) 0.0, Basophils # (Auto) 0.0, Calcium Level 9.2, Aspartate Amino Transf (AST/SGOT) 46 H, Alanine Aminotransferase (ALT/SGPT) 24, Alkaline Phosphatase 27 L, Total Bilirubin 0.6, Total Protein 6.8, Albumin 3.1 L 02/14/18 04:07 Red Blood Count 3.71 L, Mean Corpuscular Volume 89.5, Mean Corpuscular Hemoglobin 29.6, Mean Corpuscular Hemoglobin Concent 33.1, Red Cell Distribution Width 13.3, Calcium Level 8.7 L Microbiology Microbiology 02/13/18 Blood Culture, Received Pending 02/13/18 Urine Culture, Received Pending MAI MCDONALD MD Feb 14, 2018 05:47
[2018-02-14 12:00] VITALS: BP 151/85
[2018-02-14] MEDS ORDERED: LISINOPRIL 20 MG TAB PO ONE (13:00)
[2018-02-14] MEDS ORDERED: cefTRIAXone SOD 1 GM in D5W MINI-BAG PLUS 50 ML IV SCH (14:00)
--- NOTE | 2018-02-14 15:17 | ECGEPIP ---
Stationary ECG Study [facility] - ED Test Date: 2018-02-13 Pat Name: ARIEL WREN Department: Room: [place] [address] Gender: F Bung Remover: caden : 1930 Requested By: NADIA GAMBINO Order Number: [id number] Reading MD: Nannette Morris Measurements Intervals Milo Rate: 74 P: 28 NC: 301 QRS: -43 QRSD: 110 T: -1 QT: 413 QTc: 460 Interpretive Statements SINUS RHYTHM WITH FIRST DEGREE AV BLOCK MARKED LEFT AXIS DEVIATION PATTERN CONSISTENT WITH PULMONARY DISEASE PRIOR INFERIOR WALL WY AGE UNDETERMINED CW 02/12/16 RATE INCREASED NOW PROLONGED NC INTERVAL AND QTC INTERVAL Electronically Signed On 02-14-2018 15:17:26 EST by Nannette Morris
[2018-02-14 16:00] VITALS: BP 112/65
[2018-02-14 20:00] VITALS: BP 117/68
[2018-02-15] VITALS: BP 99/54
[2018-02-15] MEDS: PIPERACILLIN/TAZOBACTAM SOD 2.25 GM in D5W MINI-BAG PLUS 50 ML IV SCH ×4 (02:30→20:20)
[2018-02-15 04:00] VITALS: BP 121/71
[2018-02-15 04:52] LABS: MAGNESIUM LEVEL 1.9 MG/DL (1.8-2.4)
[2018-02-15] MEDS: LEVOTHYROXINE 75MCG TABLET (0.075MG) PO SCH (06:18)
[2018-02-15] MEDS: HEPARIN SOD (PORCINE) 5000 UNITS/ML VIAL SQ SCH (06:18)
[2018-02-15] MEDS: HumaLOG INSULIN (NovoLOG) PER UNIT SC SCH ×4 (07:30→20:11)
[2018-02-15 07:42] VITALS: BP 140/77
--- NOTE | 2018-02-15 09:00 | IPNPDOC ---
Date Seen The patient was seen on 02/15/18. Progress Note SUBJECTIVE: pt had a tarry stool yesterday, but refused transfusion if needed. h&h stable. no c/o dizziness, lightheadedness, sob, palpitations,but admits to fatigue. c/o dysuria despite lowe catheter, but declined pyridium for pain control. "If I go, I go. I don't want to suffer." Pt says she has severe aortic stenosis, mitral valve issues and has decided not to pursue surgery at "my age." "I just want to join my if it comes to that." no fever, but admits to chills when she gets febrile. no cough, sob, but admits to chronic pain in the back. PHYSICAL EXAMINATION: Vitals: (see below) General: No acute distress, laying comfortably in bed. HEENT: Moist mucous membranes. Neck: No JVD or lymphadenopathy Cardiac: RRR, 3-6 systolic ejection murmur loudest at the second right intercostal space. Pulm: Clear to auscultation b/l. No wheezing, rhonchi Abd: NT/ND + BS Ext: No edema or cyanosis Neuro: Strength 5/5 BUE and BLE. LABORATORY DATA: See below. IMAGING: Chest x-ray with no acute pulmonary disease. ASSESSMENT/PLAN: This is a 87-year-old female past medical history hypertension, hypothyroidism, diabetes mellitus, aortic stenosis, hyperlipidemia, voiding issues follows up with Dr. Chacon who presents with generalized weakness and fever.Patient had presented to urgent care yesterday with fever MAXIMUM TEMPERATURE 100.8, chills, was noted to have a urinary tract infection, given cefdinir, which she did not start yet.This morning, the patient woke up with generalized weakness and unable to get out of bed for which she slid down out of bed however did not have a mechanical fall. No syncope.Upon presenting to ED, patient was noted to be dehydrated, given IV fluids, however is still feeling ill.Patient notes that she's had prior history of UTIs with resulting sepsis. She currently denies any chest pain, shortness of breath, palpitations, nausea, vomiting, abdominal pain. She does have intermittent dysuria, however does not have any urinary frequency or urgency. 1. Sepsis secondary to a urinary tract infection. History of Pseudomonas. He started on Rocephin. Urine/blood cultures pending. IV fluids. We'll also obtain records from urgent care in [facility]. 2. Orthostatic hypotension started on IV fluids. Likely secondary to the above. 3. Rhabdomyolysis secondary to the above. Started on IV fluids. Renal function preserved. 4. Generalized weakness secondary to sepsis. PT/OT ordered. No focal weakness or deficits. 5. Hypokalemia/hypomagnesemia replaced. 6. History of aortic stenosis. No chest pain/CHF/syncope in the past. States she was evaluated by Dr. Davis's office and had refused evaluation for valve repair. 7. Hypothyroidism on Synthroid 8. History of hypertension hold home meds for now. We'll need to reassess in a.m. 9. Hyperlipidemia continue meds 10. Tarry stools. check stool for blood, supplement with vitamin c and iron asoutpt. refused blood transfusion even if needed. recheck cbc. DVT prophylaxis compression stockings. VS, I&O, 24H, Fishbone Vital Signs/I&O Vital Signs Date Time Temp Pulse Resp B/P (MAP) Pulse Ox O2 Delivery O2 Flow Rate FiO2 02/15/18 07:42 97.6 60 18 140/77 (98) 96 Room Air I&O- Last 24 Hours up to 6 AM 02/15/18 06:00 Intake Total 2355 ml Output Total 1525 ml Balance 830 ml Laboratory Data 24H LABS Laboratory Tests 2 02/14/18 11:47: Bedside Glucose (Misc Panel) 158H 02/14/18 16:30: Bedside Glucose (Misc Panel) 97 02/14/18 20:10: Bedside Glucose (Misc Panel) 150H 02/15/18 04:12: Magnesium Level 1.9 02/15/18 06:24: Bedside Glucose (Misc Panel) 121H Microbiology Microbiology 02/13/18 Blood Culture - Preliminary, Resulted No growth after 24 hours . All specim... 02/13/18 Urine Culture, Received Pending MAI MCDONALD MD Feb 15, 2018 08:01
[2018-02-15 09:32] LABS: PERCENT SATURATION 6.3 % (13.2-45.0)
[2018-02-15] MEDS: ASPIRIN 81 MG ENTERIC TAB PO SCH (09:45)
[2018-02-15] MEDS: LISINOPRIL 20 MG TAB PO SCH (09:45)
[2018-02-15 11:56] VITALS: BP 119/67
[2018-02-15] MEDS ORDERED: SLF 3 ML SYR IV PRN (12:00)
[2018-02-15] MEDS: SLF 3 ML SYR IV SCH ×2 (15:16→20:20)
[2018-02-15 16:00] VITALS: BP 130/73
[2018-02-15 18:18] LABS: HEMATOCRIT 31.2 % (36.0-47.0); HEMOGLOBIN 10.3 g/dl (12.0-15.5)
[2018-02-15 20:00] VITALS: BP 157/80
[2018-02-16] VITALS (8 sets, daily range): BP systolic 133–158; BP diastolic 60–80
[2018-02-16 00:49] LABS: HEMATOCRIT 28.3 % (36.0-47.0); HEMOGLOBIN 9.3 g/dl (12.0-15.5)
[2018-02-16] MEDS: PIPERACILLIN/TAZOBACTAM SOD 2.25 GM in D5W MINI-BAG PLUS 50 ML IV SCH ×4 (02:28→20:07)
[2018-02-16 06:08] LABS: BASO % 0.8 % (0.0-1.0); EOS # 0.2 10^3/uL (0.0-0.50); EOS % 4.7 % (0.0-3.0); HEMATOCRIT 28.3 % (36.0-47.0); HEMOGLOBIN 9.3 g/dl (12.0-15.5); LYMPH # 1.3 10^3/uL (1.5-4.5); LYMPH % 26.7 % (24.0-44.0); MEAN CORPUSCULAR HEMOGLOBIN 30.3 pg (27.0-33.0); MEAN CORPUSCULAR HGB CONC 32.9 g/dl (32.0-36.5); MEAN CORPUSCULAR VOLUME 92.2 fl (80.0-96.0); MONO # 0.6 10^3/uL (0.0-0.8); MONO % 13.1 % (0.0-5.0); NEUTROPHILS # 2.7 10^3/uL (1.8-7.7); NEUTROPHILS % 54.1 % (36.0-66.0); PLATELET COUNT, AUTOMATED 154 10^3/uL (150-450); RED BLOOD COUNT 3.07 10^6/uL (4.00-5.40); WHITE BLOOD COUNT 4.9 10^3/uL (4.0-10.0)
[2018-02-16 06:19] LABS: BLOOD UREA NITROGEN 8 MG/DL (7-18); CALCIUM LEVEL 8.3 MG/DL (8.8-10.2); CARBON DIOXIDE LEVEL 25 MEQ/L (21-32); CHLORIDE LEVEL 110 MEQ/L (98-107); CREATININE FOR GFR 0.75 MG/DL (0.55-1.30); GLOMERULAR FILTRATION RATE > 60.0 (>32); GLUCOSE, FASTING 130 MG/DL (70-100); MAGNESIUM LEVEL 1.8 MG/DL (1.8-2.4); POTASSIUM SERUM 3.3 MEQ/L (3.5-5.1); SODIUM LEVEL 143 MEQ/L (136-145)
[2018-02-16] MEDS: LEVOTHYROXINE 75MCG TABLET (0.075MG) PO SCH (06:29)
[2018-02-16] MEDS: SLF 3 ML SYR IV SCH ×3 (06:29→20:08)
[2018-02-16] MEDS: HumaLOG INSULIN (NovoLOG) PER UNIT SC SCH ×4 (07:11→20:12)
[2018-02-16] MEDS: LISINOPRIL 20 MG TAB PO SCH (08:41)
[2018-02-16] MEDS: ASPIRIN 81 MG ENTERIC TAB PO SCH (08:41)
[2018-02-17] MEDS: PIPERACILLIN/TAZOBACTAM SOD 2.25 GM in D5W MINI-BAG PLUS 50 ML IV SCH ×4 (03:34→20:48)
[2018-02-17 04:45] VITALS: BP 164/79
--- NOTE | 2018-02-17 06:12 | IPNPDOC ---
Text Note Date of Service The patient was seen on 02/16/18. NOTE SUBJECTIVE: No tarry stool today. stool for occult blood is negative, still with lowe draining clear urine. Did have urinary retension on admission. No fever or chills, no chest pain or sob, no abdominal pain , nausea or vomiting or diarrhea. PHYSICAL EXAMINATION: Vitals: (see below) General: No acute distress, laying comfortably in bed. HEENT: Moist mucous membranes. Neck: No JVD or lymphadenopathy Cardiac: RRR, 3-6 systolic ejection murmur loudest at the second right intercostal space. Pulm: Clear to auscultation b/l. No wheezing, rhonchi Abd: NT/ND + BS Ext: No edema or cyanosis Neuro: Strength 5/5 BUE and BLE. LABORATORY DATA: See below. IMAGING: Chest x-ray with no acute pulmonary disease. ASSESSMENT/PLAN: This is a 87-year-old female past medical history hypertension, hypothyroidism, diabetes mellitus, aortic stenosis, hyperlipidemia, voiding issu es follows up with Dr. Chacon who presents with generalized weakness and fever. Patient had presented to urgent care initially with fever MAXIMUM TEMPERATURE 100.8, chills, was noted to have a urinary tract infection, given cefdinir, which she did not start.The next morning the patient woke up with generalized weakness and unable to get out of bed for which she slid down out of bed however did not have a mechanical fall. No syncope. Upon presenting to ED, patient was noted to be dehydrated with Ui and sepsis. Sepsis secondary to a urinary tract infection. on Zosyn here. UC here was corynebacterium will try to get results form [facility]. Urinary retention Due to UTi will give trial of void. Orthostatic hypotension resolved after IVF Rhabdomyolysis due to infection, sepsis, fall Generalized weakness secondary to sepsis. PT/OT ordered. No focal weakness or deficits. Hypokalemia/hypomagnesemia replaced. History of aortic stenosis. No chest pain/CHF/syncope in the past. States she was evaluated by Dr. Davis's office and had refused evaluation for valve replacement Hypothyroidism on Synthroid History of hypertension hold home meds for now Hyperlipidemia continue meds Tarry stools. check stool for blood, supplement with vitamin c and iron as outpt. refused blood transfusion even if needed. stool occult blood negative. DVT prophylaxis compression stockings. VS,Fishbone, I+O VS, Fishbone, I+O Laboratory Tests 02/15/18 18:02 02/16/18 00:24 02/16/18 05:06 Red Blood Count 3.07 L, Mean Corpuscular Volume 92.2, Mean Corpuscular Hemoglobin 30.3, Mean Corpuscular Hemoglobin Concent 32.9, Red Cell Distribution Width 13.3, Neutrophils (%) (Auto) 54.1, Lymphocytes (%) (Auto) 26.7, Monocytes (%) (Auto) 13.1 H, Eosinophils (%) (Auto) 4.7 H, Basophils (%) (Auto) 0.8, Neutrophils # (Auto) 2.7, Lymphocytes # (Auto) 1.3 L, Monocytes # (Auto) 0.6, Eosinophils # (Auto) 0.2, Basophils # (Auto) 0.0 02/16/18 05:07 Calcium Level 8.3 L Vital Signs Date Time Temp Pulse Resp B/P (MAP) Pulse Ox O2 Delivery O2 Flow Rate FiO2 02/16/18 12:00 98.2 97 18 141/65 (90) 97 Room Air I&O- Last 24 Hours up to 6 AM 02/16/18 05:59 Intake Total 1830 ml Output Total 1625 ml Balance 205 ml LARISA GLOVER MD Feb 16, 2018 14:07
[2018-02-17] MEDS: LEVOTHYROXINE 75MCG TABLET (0.075MG) PO SCH (06:17)
[2018-02-17] MEDS: SLF 3 ML SYR IV SCH ×3 (06:17→20:47)
[2018-02-17 07:15] LABS: CPK CREATINE PHOSPHOKINASE 131 U/L (26-192)
[2018-02-17] MEDS: HumaLOG INSULIN (NovoLOG) PER UNIT SC SCH ×4 (07:30→20:49)
[2018-02-17 08:00] VITALS: BP 142/81
[2018-02-17] MEDS: LISINOPRIL 20 MG TAB PO SCH (08:56)
[2018-02-17] MEDS: ASPIRIN 81 MG ENTERIC TAB PO SCH (08:56)
[2018-02-17 09:20] LABS: BLOOD UREA NITROGEN 5 MG/DL (7-18); CALCIUM LEVEL 8.9 MG/DL (8.8-10.2); CARBON DIOXIDE LEVEL 28 MEQ/L (21-32); CHLORIDE LEVEL 108 MEQ/L (98-107); CREATININE FOR GFR 0.79 MG/DL (0.55-1.30); GLOMERULAR FILTRATION RATE > 60.0 (>32); GLUCOSE, FASTING 126 MG/DL (70-100); POTASSIUM SERUM 3.3 MEQ/L (3.5-5.1); SODIUM LEVEL 142 MEQ/L (136-145)
[2018-02-17] MEDS ORDERED: POTASSIUM CHLORIDE 10 MEQ SR TABLET PO ONE (10:00)
[2018-02-17] MEDS: oxyBUTYnin 5 MG TAB PO SCH ×3 (10:02→20:48)
--- NOTE | 2018-02-17 13:29 | IPNPDOC ---
Text Note Date of Service The patient was seen on 02/17/18. NOTE SUBJECTIVE: Complaining of burning and irritation of the perineum when she is passing urine. Also feels like she is having incomplete voiding after removal of lowe. Did have urinary retention on admission. No fever or chills, no chest pain or sob, no abdominal pain , nausea or vomiting or diarrhea. PHYSICAL EXAMINATION: Vitals: (see below) General: No acute distress, laying comfortably in bed. HEENT: Moist mucous membranes. Neck: No JVD or lymphadenopathy Cardiac: RRR, 3-6 systolic ejection murmur loudest at the second right intercostal space. Pulm: Clear to auscultation b/l. No wheezing, rhonchi Abd: NT/ND + BS Ext: No edema or cyanosis Female external genitalia: Labia Major and Labia minor labia swollen and inflamed. The labia minor on the left is more swollen than the left. there is some excoriations also. Neuro: Strength 5/5 BUE and BLE. LABORATORY DATA: See below. IMAGING: Chest x-ray with no acute pulmonary disease. ASSESSMENT/PLAN: This is a 87-year-old female past medical history hypertension, hypothyroidism, diabetes mellitus, aortic stenosis, hyperlipidemia, voiding issues follows up with Dr. Chacon who presents with generalized weakness and fever. Patient had presented to urgent care initially with fever MAXIMUM TEMPERATURE 100.8, chills, was noted to have a urinary tract infection, given cefdinir, which she did not start.The next morning the patient woke up with generalized weakness and unable to get out of bed for which she slid down out of bed however did not have a mechanical fall. No syncope. Upon presenting to ED, patient was noted to be dehydrated with UTI and sepsis. Sepsis secondary to a urinary tract infection. on Zosyn here. UC here was corynebacterium DID not have any culture done at [facility] as could not provide a sample Urinary retention Due to UTI lowe dced, voiding ok however has frequency of urination and feels that is having incomplete voiding May have overactive bladder will try oxybutynin. Labial inflammation and swelling will consult [facility]. Orthostatic hypotension resolved after IVF Rhabdomyolysis due to infection, sepsis, fall resolved Generalized weakness secondary to sepsis. now improved, cleared by PT. Hypokalemia/hypomagnesemia replaced. History of aortic stenosis. No chest pain/CHF/syncope in the past. States she was evaluated by Dr. Davis's office and had refused evaluation for valve replacement Hypothyroidism on Synthroid History of hypertension hold home meds for now Hyperlipidemia continue meds Tarry stools. refused blood transfusion stool occult blood negative. DVT prophylaxis compression stockings. VS,Fishbone, I+O VS, Fishbone, I+O Laboratory Tests 02/17/18 06:27 Calcium Level 8.9 Vital Signs Date Time Temp Pulse Resp B/P (MAP) Pulse Ox O2 Delivery O2 Flow Rate FiO2 02/17/18 08:56 142/81 02/17/18 08:00 97.8 59 18 98 Room Air I&O- Last 24 Hours up to 6 AM 02/17/18 06:00 Intake Total 1300 ml Output Total 1565 ml Balance -265 ml LARISA GLOVER MD Feb 17, 2018 13:29
[2018-02-17 14:00] VITALS: BP 154/82
--- NOTE | 2018-02-17 18:41 | IPNPDOC ---
Text Note Date of Service The patient was seen on 02/17/18. NOTE Requested to evaluate pt of Dr Delaney's for groin and perineal itching and edema [place], groin, perineum inflammed and swollen. L labia minora more swollen than right. Reviewed pt status with Dr Delaney. Ms Erazo has been treated by him previously for a similar presentation using clobetasol BID. Pt states she hasn't used her clobetasol at home for over a week now. Pt verb alized understanding of need to resume treatment at this time. VS,Fishbone, I+O VS, Fishbone, I+O Laboratory Tests 02/17/18 06:27 Calcium Level 8.9 Vital Signs Date Time Temp Pulse Resp B/P (MAP) Pulse Ox O2 Delivery O2 Flow Rate FiO2 02/17/18 14:00 97.9 54 15 154/82 (106) 98 Room Air I&O- Last 24 Hours up to 6 AM 02/17/18 06:00 Intake Total 1300 ml Output Total 1565 ml Balance -265 ml Latonia Correa CNM Feb 17, 2018 18:41
[2018-02-17] MEDS: CLOBETASOL PROP 0.05% OINT 30 GM TOP SCH (20:47)
[2018-02-17 22:00] VITALS: BP 138/67
[2018-02-18] MEDS: PIPERACILLIN/TAZOBACTAM SOD 2.25 GM in D5W MINI-BAG PLUS 50 ML IV SCH ×2 (02:47→08:35)
[2018-02-18 06:00] VITALS: BP 144/70
[2018-02-18] MEDS: SLF 3 ML SYR IV SCH (06:25)
[2018-02-18] MEDS: LEVOTHYROXINE 75MCG TABLET (0.075MG) PO SCH (06:25)
[2018-02-18] MEDS ORDERED: POTASSIUM CHLORIDE 10 MEQ SR TABLET PO ONE (08:00)
[2018-02-18] MEDS: HumaLOG INSULIN (NovoLOG) PER UNIT SC SCH (08:34)
[2018-02-18 08:35] VITALS: BP 144/70
[2018-02-18] MEDS: ASPIRIN 81 MG ENTERIC TAB PO SCH (08:35)
[2018-02-18] MEDS: oxyBUTYnin 5 MG TAB PO SCH (08:35)
[2018-02-18] MEDS: CLOBETASOL PROP 0.05% OINT 30 GM TOP SCH (08:35)
[2018-02-18] MEDS: LISINOPRIL 20 MG TAB PO SCH (08:35)
[2018-02-18 10:00] VITALS: BP 158/74
[2018-02-18] MEDS ORDERED: CLOB05OI TOP (10:06)
[2018-02-18] MEDS ORDERED: OXYB5TAB10 PO (10:06)
[2018-02-18] MEDS ORDERED: FLUC200T2 PO (10:06)
[2018-02-18] MEDS ORDERED: FLUCONAZOLE 100 MG TAB PO ONE (11:00)
--- NOTE | 2018-02-18 12:07 | DS.PDOC ---
Discharge Summary General Date of Admission Feb 13, 2018 at 14:05 Date of Discharge 02/18/18, PCP: Pam Quintero Attending Physician: LARISA GLOVER MD Specialist/Consultants Involve: Latonia Correa CNM Discharge Summary PROCEDURES PERFORMED DURING STAY: None DISCHARGE DIAGNOSES: UTI Sepsis Rhabdomyolysis orthostatic hypotension Possible overactive bladder Labia majora and minora inflammation was told by LEARNING MANAGER thet it was autoimmune Candidiasis of the groin and perineum Urinary retention resolved Aortic stenosis Hyperlipidemia Hypothyroid Electrolyte imbalance COMPLICATIONS/CHIEF COMPLAINT: Dehydration Sepsis Uti. HISTORY OF PRESENT ILLNESS: See history and physical HOSPITAL COURSE: This is a 87-year-old female past medical history hypertension, hypothyroidism, diabetes mellitus, aortic stenosis, hyperlipidemia, voiding issues follows up with Dr. Chacon who presents with generalized weakness and fever. Patient had presented to urgent care initially with fever MAXIMUM TEMPERATURE 100.8, chills, was noted to have a urinary tract infection, given cefdinir, which she did not start.The next morning the patient woke up with generalized weakness and unable to get out of bed for which she slid down out of bed however did not have a mechanical fall. No syncope. Upon presenting to ED, patient was noted to be dehydrated with UTI and sepsis. Sepsis secondary to a urinary tract infection. on Zosyn here. UC here was corynebacterium DID not have any culture done at [facility] as could not provide a sample Urinary retention Due to UTI Waters dced, voiding ok however has frequency of urination and feels that is having incomplete voiding May have overactive bladder will try oxybutynin. Candidiasis in the perineum and groin areas will give fluconazole. Labial inflammation and swelling started on Clobetasol which the patient says is helping follow up Dr Delaney Orthostatic hypotension resolved Rhabdomyolysis due to infection, sepsis, fall resolved Generalized weakness secondary to sepsis. now improved, cleared by PT. Hypokalemia/hypomagnesemia replaced. Diabetes restart home medication History of aortic stenosis. No chest pain/CHF/syncope in the past. States she was evaluated by Dr. Davis's office and had refused evaluation for valve replacement Hypothyroidism on Synthroid History of hypertension will restart home medications Hyperlipidemia continue fenofibrate and omega 3 fatty acid. Tarry stools. refused blood transfusion stool occult blood negative. DVT prophylaxis compression stockings. DISCHARGE MEDICATIONS: Please see below. ALLERGIES: Please see below. PHYSICAL EXAMINATION ON DISCHARGE: VITAL SIGNS: Please see below. GENERAL: No acute distress, laying comfortably in bed. HEENT: Moist mucous membranes. Neck: No JVD or lymphadenopathy Cardiac: RRR, 3-6 systolic ejection murmur loudest at the second right intercostal space. Pulm: Clear to auscultation b/l vesicular breath sounds. No wheezing, rhonchi Abd: NT/ND + BS, there in fungal infection in both the groin creases. Ext: No edema or cyanosis Female external genitalia: Labia Major and Labia minor labia swollen and inflamed. The labia minora on the left is more swollen than the right. there is some excoriations also. Neuro: Strength 5/5 BUE and BLE. LABORATORY DATA: Please see below. ACTIVITY: [As tolerated]. DIET: Carb consistent DISPOSITION: Home DISCHARGE INSTRUCTIONS: Follow up with PMD in 1 [address] Follow up [address] Dr Delaney. Follow up with Dr Chacon for urinary urgency and frequency and sensation of incomplete voiding. DISCHARGE CONDITION: [Stable]. TIME SPENT ON DISCHARGE: Greater than 30 minutes. Vital Signs/I&Os Vital Signs Date Time Temp Pulse Resp B/P (MAP) Pulse Ox O2 Delivery O2 Flow Rate FiO2 02/18/18 10:00 97.2 59 18 158/74 (102) 99 02/17/18 14:00 Room Air I&O- Last 24 Hours up to 6 AM 02/18/18 05:59 Intake Total 1440 ml Output Total 850 ml Balance 590 ml Laboratory Data Labs 24H Laboratory Tests 2 02/17/18 16:25: Bedside Glucose (Misc Panel) 105 02/17/18 20:28: Bedside Glucose (Misc Panel) 171H 02/18/18 06:54: Bedside Glucose (Misc Panel) 123H FSBS Laboratory Tests Test 02/17/18 16:25 02/17/18 20:28 02/18/18 06:54 Range/Units Bedside Glucose (Misc Panel) 105 171 123 83-110 MG/DL Microbiology Microbiology 02/13/18 Blood Culture - Preliminary, Resulted No Growth after 72 hours. All specime... 02/15/18 Stool Occult Blood (RACHEL) - Final, Complete 02/13/18 Urine Culture - Final, Complete Corynebacterium Species Discharge Medications Scheduled (Lisinopril/Hydrochlorothi 20-12.5 mg) 1 Tab Tab, 1 TAB PO DAILY, (Reported) (Fenofibrate) 50 Mg Cap, 50 MG PO DAILY, (Reported) Aspirin (Aspirin) 81 Mg Tab, 81 MG PO DAILY, (Reported) B1/B2/B3/B5/B6 (Vitamin B Complex) 1 Tab Tab, 1 TAB PO DAILY, (Reported) Clobetasol Propionate (Clobetasol Propionate) 0.05 % Oin, 0 DOSE TOP BID Fish Oil (Fish Oil) 1,000 Mg Cap, 2,000 MG PO BID, (Reported) Fluconazole (Fluconazole) 200 Mg Tab, 1 TAB PO ONCE for yeast infection please take on 02/21/18 Levothyroxine Sodium (Synthroid) 75 Mcg Tab, 75 MCG PO DAILY, (Reported) Metformin Hydrochloride (Metformin Hydrochloride) 500 Mg Tab, 1,000 MG PO BID, (Reported) Multivitamins *[facility] STOCKED* (Thera M Plus *[facility] STOCKED*) 1 Tab Tab, 1 TAB PO DAILY, (Reported) Oxybutynin Chloride (Oxybutynin Chloride) 5 Mg Tab, 5 MG PO TID Scheduled PRN (Acetaminophen Pm Extra St 500-25 mg) 1 Tab Tab, 1 TAB PO QHS PRN for SLEEP, (Reported) Acetaminophen (Tylenol) 325 Mg Tab, 650 MG PO Q4H PRN for PAIN, (Reported) Allergies Coded Allergies: Sulfamethoxazole w/Trimethoprim (Verified Adverse Reaction, Intermediate, hallucinations, 02/13/18) LARISA GLOVER MD Feb 18, 2018 12:07
== END 2018-02-18 12:31 | disposition home health service (06) | DRG 872 ==
LOC: EDBD 11:19 → M ED 11:19 → M ED INP 14:05 → M PCU 15:47 → M MSPAV 02-17 10:47
PROVIDERS: ADMIT Internal Medicine; ATTEND Internal Medicine Nephrology
DX: A41.9 Sepsis, unspecified organism (principal); N39.0 Urinary tract infection, site not specified; M62.82 Rhabdomyolysis; B37.89 Other sites of candidiasis; I10 Essential (primary) hypertension; E03.9 Hypothyroidism, unspecified; E87.6 Hypokalemia; E83.42 Hypomagnesemia; E11.9 Type 2 diabetes mellitus without complications; I35.0 Nonrheumatic aortic (valve) stenosis; N32.81 Overactive bladder; E78.5 Hyperlipidemia, unspecified; E86.0 Dehydration; Z87.891 Personal history of nicotine dependence; Z79.82 Long term (current) use of aspirin; Z79.84 Long term (current) use of oral hypoglycemic drugs; Z79.899 Other long term (current) drug therapy